=== PATIENT | female | born 1940 | race Caucasian/White ===

== ENCOUNTER 2021-05-12 05:45 | Inpatient (IN) ==
--- NOTE | 2021-05-12 06:31 | Emergency Department Note ---
Impression & Plan Chest pain, Pancytopenia, Bradycardia ED Provider Note NAME: YOUNG MANZANARES AGE: 81 SEX: F : 1940 ARRIVES VIA: Ambulance INFORMANT: Patient, ED PROVIDER(S): Ant Biswas DO CHIEF COMPLAINT: Palpitations HPI: The patient is an 81-year-old female who came to the emergency department via ambulance for an evaluation of palpitations. The patient also was experiencing chest pain last evening. The patient states that over the last few months she has been experiencing episodes of palpitations and anxiety. She was seen by her primary care physician and a Holter monitor was ordered but she could not figure out how to hook loader the monitor. The patient does not have a history of dysrhythmia such as atrial fibrillation. She is noticed no leg swelling. She did have an episode of chest discomfort and was not given aspirin prior to arrival. She denies having any abdominal pain. She has no nausea or vomiting. She describes anterior chest pressure which is since resolved. The patient has not seen her family doctor recently. She was working in the garden yesterday at her house and thinks she may have overexerted herself. The patient had no dysrhythmia for the prehospital personnel prior to arrival. ROS: See above HPI for pertinent positives & negatives. A total of 10 systems reviewed and were otherwise negative. PAST MEDICAL HISTORY: See Below PAST SURGICAL HISTORY: See Below FAMILY HISTORY: See Below SOCIAL HISTORY: See Below HOME MEDICATIONS: See Below ALLERGIES: See Below VITALS: See Below PHYSICAL EXAMINATION: GENERAL: Patient is awake alert in no acute distress patient is resting comfortably and showing no signs of anxiety EYES: The conjunctivae are clear. The pupils are round and reactive. EARS, NOSE, MOUTH AND THROAT: The nose is without any evidence of any deformity. NECK: The neck is nontender and supple. RESPIRATORY: Normal respiratory effort is noted there is no evidence of wheezing rhonchi or rales CARDIOVASCULAR: Regular rate and rhythm noted there no murmurs rubs or gallops normal S1 normal S2. GASTROINTESTINAL: The abdomen is soft. Abdomen is nontender. MUSCULOSKELETAL/EXTREMITIES: Chronic deformity is noted to the left lower extremity secondary to previous injury. SKIN: There is no obvious evidence of any rash. There are no petechiae, pallor or cyanosis noted. NEUROLOGIC: Patient is awake alert and oriented x3. MEDICAL DECISION MAKING: The patient is an 81-year-old female who presented to the emergency department for palpitations and chest pain. The patient has no specific past cardiac h istory but over the last month she has been having episodes where she felt palpitations like her heart was skipping and an anxious feeling. The patient did not have any specific EKG changes compared to previous and her cardiac biomarker was negative despite having ongoing pain since last night. She had multiple episodes in the emergency department of bradycardia where her heart rate would drop into the 20s and 30s. She did not appear to be overly symptomatic but given these episodes of bradycardia I would wonder if this is what the patient was feeling when she was having episodes of palpitations. I discussed the patient's laboratory and radiographic studies with her. She was treated with aspirin and IV fluids in the emergency department. She was also found to have a mild elevation in her creatinine as well as pancytopenia. To the best of my knowledge these are new findings. Because of the patient's complaints I did discuss his case with the on-call [facility]. Caitlin bean have agreed to evaluate the patient in the emergency department for further management and disposition. Triage Nursing notes reviewed. Prior medical records reviewed Vital Signs: reviewed and remarkable for bradycardia and elevated blood pressure. Differential diagnosis: Cardiac ischemia, aortic dissection, pulmonary embolism, pneumothorax, pneumonia, pericarditis, myocarditis, esophageal rupture, GERD, cholecystitis, pancreatitis, musculoskeletal, as well as other pathologies. ER treatment provided: See below Diagnostics interpreted by me: ECG: EKG was obtained in the emergency department. My interpretation is sinus bradycardia 57 bpm. There is no ectopy. High lateral T wave versions were noted. This was compared to a tracing from January [id number]. No significant changes were noted. Cardiac Monitoring: An order was placed for continuous cardiac monitoring. The monitor shows a rate of 57 bpm with sinus bradycardia rhythm. Laboratory studies: As stated above and show below. Imaging studies: See below Consultation(s): [id number]: I discussed this case with Dr. Hwang who is on-call for the [facility] group. She will evaluate the patient in the emergency department for further management and disposition. Past Med/Surg History Medical History (Updated 05/12/21 @ 10:57 by Abbey Hwang MD) Ambulatory dysfunction Arthritis of knee GERD (gastroesophageal reflux disease) History of anxiety History of depression Hypokalemia Hypothyroidism MCI (mild cognitive impairment) Pancreatic insufficiency Surgical History (Updated 05/12/21 @ 10:53 by Abbey Hwang MD) H/O tubal ligation History of cholecystectomy History of gastric bypass Family History (Updated 05/12/21 @ 10:54 by Abbey Hwang MD) Mother Cardiac pacemaker in situ Other Family history non-contributory Social History (Updated 05/12/21 @ 10:54 by Abbey Hwang MD) Smoking Status: Never smoker Hx Alcohol Use: No Hx Substance Use: No Preferred Language: Citizen Of [place] Communication Ability: Effective Audio Visual Secretary Required: No Beliefs That Will Affect Care: None marital status: Current Living Situation: Spouse Current Living Situation Comment: Lives with . One son lives about 15 miles away. Other Information That Helps Us Care for You: No Feels Safe at Home: Yes Safety Concerns: Feels Safe At This Time Assistive Devices: Glasses and Wheelchair Assistive Devices Comment: Uses power-wheelchair Allergies Allergies Allergy/AdvReac Type Severity Reaction Status Date / Time No Known Allergies Allergy Unverified 05/12/21 07:27 Home Meds Home Medications Medication Instructions Recorded Confirmed acetaminophen [Tylenol Extra 500 mg PO Q6H PRN 05/12/21 05/12/21 Strength] donepezil 5 mg PO HS 05/12/21 05/12/21 furosemide 40 mg PO DAILY PRN 05/12/21 05/12/21 levothyroxine 75 mcg PO QAM 05/12/21 05/12/21 [id number] [Creon] 6,000 cap PO TID 05/12/21 05/12/21 loperamide [Anti-Diarrhea] 2 mg PO Q4H PRN 05/12/21 05/12/21 loratadine-pseudoephedrine 1 tab PO DAILY PRN 05/12/21 05/12/21 [Claritin-D 24 Hour] omeprazole 20 mg PO QAM 05/12/21 05/12/21 potassium chloride 20 meq PO TID 05/12/21 05/12/21 Results & Data (ED) Vital Signs Vital Signs - 24 hr 05/12/21 05:56 05/12/21 06:01 05/12/21 06:06 Temperature 36.6 C Temperature Source Oral Pulse Rate 62 60 Pulse Rate from SpO2 Sensor 60 Respiratory Rate 18 21 Respiratory Effort / Characteristics Non-Labored Spontaneous Non-Labored Spontaneous Respiratory Depth Normal Normal Respiratory Pattern Regular Regular Blood Pressure 170/74 H 137/73 Blood Pressure Mean 106 94 Blood Pressure Position Sitting Pulse Oximetry 98 98 Oxygen Delivery Method Room Air Sepsis Recent Fever Within 48 Hours No Sepsis New/Unexplained Change in Mental Status No Sepsis Action Taken by Nursing No Action Required 05/12/21 06:38 05/12/21 07:01 05/12/21 07:34 Temperature Temperature Source Pulse Rate 40 L 40 L 61 Pulse Rate from SpO2 Sensor 41 L 61 Respiratory Rate 22 24 22 Respiratory Effort / Characteristics Respiratory Depth Respiratory Pattern Blood Pressure 150/72 H 133/61 168/77 H Blood Pressure Mean 98 85 107 Blood Pressure Position Pulse Oximetry 99 98 99 Oxygen Delivery Method Sepsis Recent Fever Within 48 Hours Sepsis New/Unexplained Change in Mental Status Sepsis Action Taken by Nursing 05/12/21 08:00 05/12/21 08:30 05/12/21 09:00 Temperature Temperature Source Pulse Rate 57 L 57 L 56 L Pulse Rate from SpO2 Sensor 57 L 56 L 55 L Respiratory Rate 21 20 20 Respiratory Effort / Characteristics Respiratory Depth Respiratory Pattern Blood Pressure 150/67 H 148/70 H Blood Pressure Mean 94 96 Blood Pressure Position Pulse Oximetry 98 97 91 Oxygen Delivery Method Sepsis Recent Fever Within 48 Hours Sepsis New/Unexplained Change in Mental Status Sepsis Action Taken by Nursing 05/12/21 09:01 05/12/21 09:02 05/12/21 09:31 Temperature Temperature Source Pulse Rate 44 L 35 L 61 Pulse Rate from SpO2 Sensor 43 L 37 L 62 Respiratory Rate 21 21 21 Respiratory Effort / Characteristics Respiratory Depth Respiratory Pattern Blood Pressure 148/59 H 113/76 Blood Pressure Mean 88 88 Blood Pressure Position Pulse Oximetry 100 100 100 Oxygen Delivery Method Sepsis Recent Fever Within 48 Hours Sepsis New/Unexplained Change in Mental Status Sepsis Action Taken by Nursing 05/12/21 10:01 05/12/21 10:02 05/12/21 10:30 Temperature Temperature Source Pulse Rate 56 L 53 L 58 L Pulse Rate from SpO2 Sensor 56 L 54 L 58 L Respiratory Rate 20 18 22 Respiratory Effort / Characteristics Respiratory Depth Respiratory Pattern Blood Pressure 154/71 H 157/72 H Blood Pressure Mean 98 100 Blood Pressure Position Pulse Oximetry 99 99 98 Oxygen Delivery Method Sepsis Recent Fever Within 48 Hours Sepsis New/Unexplained Change in Mental Status Sepsis Action Taken by Nursing 05/12/21 10:31 Temperature Temperature Source Pulse Rate 59 L Pulse Rate from SpO2 Sensor 60 Respiratory Rate 19 Respiratory Effort / Characteristics Respiratory Depth Respiratory Pattern Blood Pressure Blood Pressure Mean Blood Pressure Position Pulse Oximetry 98 Oxygen Delivery Method Sepsis Recent Fever Within 48 Hours Sepsis New/Unexplained Change in Mental Status Sepsis Action Taken by [facility] Medications Current Medication List: was personally reviewed by me Laboratory Data Attestation: I reviewed the patient's lab results. Result diagrams: 05/12/21 06:15 05/12/21 06:15 Lab Results 05/12/21 05/12/21 05/12/21 Range/Units 06:15 06:15 06:15 WBC 3.68 L (4.8-10.8) K/uL RBC 3.79 L (4.2-5.4) M/uL Hgb 11.6 L (12.0-16.0) g/dL Hct 38.2 (37-47) % MCV 100.8 H (80-100) fL MCH 30.6 (25-34) pg MCHC 30.4 L (32-36) g/dL RDW Std Deviation 60.3 H (36.4-46.3) fL RDW Coeff of Linda 16.3 H (11.5-14.5) % Plt Count 89 L (130-400) K/uL MPV 11.0 H (7.4-10.4) fL Immature Gran % (Auto) 0.0 % Neut % (Auto) 54.7 % Lymph % (Auto) 32.3 % [place] % (Auto) 9.0 % Eos % (Auto) 3.5 % Baso % (Auto) 0.5 % Neut # (Auto) 2.01 (1.4-6.5) K/uL Lymph # (Auto) 1.19 L (1.2-3.4) K/uL [place] # (Auto) 0.33 (0.11-0.59) K/uL Eos # (Auto) 0.13 (0-0.5) K/uL Baso # (Auto) 0.02 (0-0.2) K/uL Immature Gran # (Auto) 0.00 (0.00-0.02) K/uL Platelet Estimate Decreased L (Normal) Peripher Smr Path Cons PT 11.0 (9.0-12.0) Seconds INR 1.1 (0.9-1.1) APTT 25.9 (21.0-31.0) Seconds PTT Ratio 1.0 Sodium 145 (136-145) mmol/L Potassium 4.3 (3.5-5.1) mmol/L Chloride 119 H (98-107) mmol/L Carbon Dioxide 21 (21-32) mmol/L Anion Gap 5.0 (3-11) BUN 25 H (7-18) mg/dl Creatinine 1.61 H (0.6-1.2) mg/dl Est Cr Clr Drug Dosing 28.4 ml/min Est GFR ( Amer) 34.4 ml/min Est GFR (Non-Af Amer) 29.7 ml/min BUN/Creatinine Ratio 15.8 (10-20) Glucose 75 (70-99) mg/dl Calcium 7.2 L (8.5-10.1) mg/dl Magnesium 1.9 (1.8-2.4) mg/dl Total Bilirubin 0.3 (0.2-1) mg/dl AST 12 L (15-37) U/L ALT 18 (12-78) U/L Alkaline Phosphatase 229 H (45-117) U/L Troponin I < 0.015 (0-0.045) ng/ml Total Protein 5.6 L (6.4-8.2) gm/dl Albumin 2.8 L (3.4-5.0) gm/dl Globulin 2.8 (2.5-4.0) gm/dl Albumin/Globulin Ratio 1.0 (0.9-2) TSH 7.820 H (0.300-4.500) uIu/ml Free T4 0.88 (0.8-1.6) ng/dl Anaplasma Smear See Comment Lyme Disease IgG Ab (Negative) Lyme Disease IgM Ab (Negative) COVID-19 Eval Order SARS-CoV-2 (PCR) (Negative) SARS-CoV-2, RNA, NAAT 05/12/21 05/12/21 05/12/21 Range/Units 06:15 06:33 06:33 WBC (4.8-10.8) K/uL RBC (4.2-5.4) M/uL Hgb (12.0-16.0) g/dL Hct (37-47) % MCV (80-100) fL MCH (25-34) pg MCHC (32-36) g/dL RDW Std Deviation (36.4-46.3) fL RDW Coeff of Linda (11.5-14.5) % Plt Count (130-400) K/uL MPV (7.4-10.4) fL Immature Gran % (Auto) % Neut % (Auto) % Lymph % (Auto) % [place] % (Auto) % Eos % (Auto) % Baso % (Auto) % Neut # (Auto) (1.4-6.5) K/uL Lymph # (Auto) (1.2-3.4) K/uL [place] # (Auto) (0.11-0.59) K/uL Eos # (Auto) (0-0.5) K/uL Baso # (Auto) (0-0.2) K/uL Immature Gran # (Auto) (0.00-0.02) K/uL Platelet Estimate (Normal) Peripher Smr Path Cons PT (9.0-12.0) Seconds INR (0.9-1.1) APTT (21.0-31.0) Seconds PTT Ratio Sodium (136-145) mmol/L Potassium (3.5-5.1) mmol/L Chloride (98-107) mmol/L Carbon Dioxide (21-32) mmol/L Anion Gap (3-11) BUN (7-18) mg/dl Creatinine (0.6-1.2) mg/dl Est Cr Clr Drug Dosing ml/min Est GFR ( Amer) ml/min Est GFR (Non-Af Amer) ml/min BUN/Creatinine Ratio (10-20) Glucose (70-99) mg/dl Calcium (8.5-10.1) mg/dl Magnesium (1.8-2.4) mg/dl Total Bilirubin (0.2-1) mg/dl AST (15-37) U/L ALT (12-78) U/L Alkaline Phosphatase (45-117) U/L Troponin I (0-0.045) ng/ml Total Protein (6.4-8.2) gm/dl Albumin (3.4-5.0) gm/dl Globulin (2.5-4.0) gm/dl Albumin/Globulin Ratio (0.9-2) TSH (0.300-4.500) uIu/ml Free T4 (0.8-1.6) ng/dl Anaplasma Smear Lyme Disease IgG Ab Negative (Negative) Lyme Disease IgM Ab Negative (Negative) COVID-19 Eval Order Covid19 IDNow [facility] SARS-CoV-2 (PCR) (Negative) SARS-CoV-2, RNA, NAAT Cancelled 05/12/21 Range/Units 06:33 WBC (4.8-10.8) K/uL RBC (4.2-5.4) M/uL Hgb (12.0-16.0) g/dL Hct (37-47) % MCV (80-100) fL MCH (25-34) pg MCHC (32-36) g/dL RDW Std Deviation (36.4-46.3) fL RDW Coeff of Linda (11.5-14.5) % Plt Count (130-400) K/uL MPV (7.4-10.4) fL Immature Gran % (Auto) % Neut % (Auto) % Lymph % (Auto) % [place] % (Auto) % Eos % (Auto) % Baso % (Auto) % Neut # (Auto) (1.4-6.5) K/uL Lymph # (Auto) (1.2-3.4) K/uL [place] # (Auto) (0.11-0.59) K/uL Eos # (Auto) (0-0.5) K/uL Baso # (Auto) (0-0.2) K/uL Immature Gran # (Auto) (0.00-0.02) K/uL Platelet Estimate (Normal) Peripher Smr Path Cons PT (9.0-12.0) Seconds INR (0.9-1.1) APTT (21.0-31.0) Seconds PTT Ratio Sodium (136-145) mmol/L Potassium (3.5-5.1) mmol/L Chloride (98-107) mmol/L Carbon Dioxide (21-32) mmol/L Anion Gap (3-11) BUN (7-18) mg/dl Creatinine (0.6-1.2) mg/dl Est Cr Clr Drug Dosing ml/min Est GFR ( Amer) ml/min Est GFR (Non-Af Amer) ml/min BUN/Creatinine Ratio (10-20) Glucose (70-99) mg/dl Calcium (8.5-10.1) mg/dl Magnesium (1.8-2.4) mg/dl Total Bilirubin (0.2-1) mg/dl AST (15-37) U/L ALT (12-78) U/L Alkaline Phosphatase (45-117) U/L Troponin I (0-0.045) ng/ml Total Protein (6.4-8.2) gm/dl Albumin (3.4-5.0) gm/dl Globulin (2.5-4.0) gm/dl Albumin/Globulin Ratio (0.9-2) TSH (0.300-4.500) uIu/ml Free T4 (0.8-1.6) ng/dl Anaplasma Smear Lyme Disease IgG Ab (Negative) Lyme Disease IgM Ab (Negative) COVID-19 Eval Order SARS-CoV-2 (PCR) NEGATIVE (Negative) SARS-CoV-2, RNA, NAAT Administered Medications Lipase/Protease/Amylase (Pancreaze (Lipase 10,500u) Cap) 1 cap PO TIDM FLO Stop: 06/11/21 12:59 Last Admin: 05/12/21 13:11 Dose: 1 cap Documented by: [id number] Sodium Chloride (Nss 1000ml) 1,000 mls @ 100 mls/hr IV .Q10H FLO Stop: 06/11/21 10:45 Last Admin: 05/12/21 13:07 Dose: 100 mls/hr Documented by: [id number] Doxycycline Hyclate 100 mg/ (Dextrose) 110 mls @ 50 mls/hr IV Q12H FLO Stop: 05/26/21 12:20 Last Admin: 05/12/21 13:10 Dose: 50 mls/hr Documented by: [id number] Levothyroxine Sodium (Levothyroxine Sodium 88 Mcg Tablet) 88 mcg PO DAILYBB FLO Stop: 06/11/21 12:59 Last Admin: 05/12/21 13:10 Dose: 88 mcg Documented by: [id number] Potassium Chloride (Potassium Chloride Crtab 20 Meq Tabcr) 20 meq PO TID FLO Stop: 06/11/21 13:59 Last Admin: 05/12/21 13:11 Dose: 20 meq Documented by: [id number] Discontinued Medications Sodium Chloride (Nss 1000ml) 500 mls @ 999 mls/hr IV .Q31M ONE Stop: 05/12/21 07:50 Last Infusion: 05/12/21 07:53 Dose: 0 mls/hr Documented by: [id number] Admin: 05/12/21 07:33 Dose: 999 mls/hr Documented by: [id number] Imaging Data Radiologist's Impression: Chest X-Ray 05/12/21 06:18 SINGLE VIEW CHEST CLINICAL HISTORY: Dysrhythmia. FINDINGS: An AP, portable, upright chest radiograph is compared to study dated 01/22/2008. The heart is enlarged noting atherosclerotic calcification of the thoracic aorta. The pulmonary vasculature is noncongested. Chronic interstitial thickening is similar to previous. There is bibasilar scarring/atelectasis. No airspace consolidation or large pleural effusion is identified. No pneumothorax is seen. The skeletal structures are osteopenic. The bony thorax is grossly intact. IMPRESSION: Cardiomegaly with no acute cardiopulmonary abnormality. ACT 112: Negative or not required by law. Electronically signed by: Carroll Chapin M.D. 05/12/2021 7:47 AM Discharge Plan Visit Data Chief Complaint: Cardiac Assessment Stated Complaint: Dyspnea with exertion ED Provider: Ant Biswas Discharge Problem: Chest pain, Pancytopenia, Bradycardia Patient Disposition: Admitted As Inpatient Condition: Good Discharge Instructions Interventions: ED Discharge Assessment Last Done: 05/12/21 11:41 Discharge Problem: Chest pain Qualifiers: Chest pain type: unspecified Qualified Code(s): R07.9 - Chest pain, unspecified
[2021-05-12 06:45] LABS: INR 1.1 (0.9-1.1); Partial Thromboplastin Time 25.9 Seconds (21.0-31.0)
[2021-05-12 06:55] LABS: Alanine Aminotransferase 18 U/L (12-78); Albumin Level 2.8 gm/dl (3.4-5.0); Aspartate Aminotransferase 12 U/L (15-37); BUN Creatinine Ratio 15.8 (10-20); Blood Urea Nitrogen 25 mg/dl (7-18); Calcium 7.2 mg/dl (8.5-10.1); Carbon Dioxide 21 mmol/L (21-32); Chloride 119 mmol/L (98-107); Creatinine Clr Calc Pharmacy 28.4 ml/min; Est GFR (African American) 34.4 ml/min; Est GFR (Non-African American) 29.7 ml/min; Glucose 75 mg/dl (70-99); Magnesium 1.9 mg/dl (1.8-2.4); Potassium 4.3 mmol/L (3.5-5.1); Sodium 145 mmol/L (136-145)
[2021-05-12 07:05] LABS: Alkaline Phosphatase 229 U/L (45-117); Bilirubin,Total 0.3 mg/dl (0.2-1); Globulin 2.8 gm/dl (2.5-4.0); Total Protein 5.6 gm/dl (6.4-8.2); Troponin I < 0.015 ng/ml (0-0.045)
[2021-05-12 07:13] LABS: Hematocrit (blood only) 38.2 % (37-47); Hemoglobin 11.6 g/dL (12.0-16.0); Mean Corpuscular Hemoglobin 30.6 pg (25-34); Mean Corpuscular Hgb Conc 30.4 g/dL (32-36); Mean Corpuscular Volume 100.8 fL (80-100); Platelet Count 89 K/uL (130-400); RDW Coefficient of Variation 16.3 % (11.5-14.5); RDW Standard Deviation 60.3 fL (36.4-46.3); Red Blood Count 3.79 M/uL (4.2-5.4); White Blood Count 3.68 K/uL (4.8-10.8)
[2021-05-12 07:14] LABS: Basophils # (auto) 0.02 K/uL (0-0.2); Basophils % (auto) 0.5 %; Eosinophils # (auto) 0.13 K/uL (0-0.5); Eosinophils % (auto) 3.5 %; Lymphocytes # (auto) 1.19 K/uL (1.2-3.4); Lymphocytes % (auto) 32.3 %; Monocytes # (auto) 0.33 K/uL (0.11-0.59); Neutrophils # (auto) 2.01 K/uL (1.4-6.5); Neutrophils % (auto) 54.7 %; Platelet Estimate Decreased (Normal)
[2021-05-12 07:18] LABS: T4 Free Thyroxine 0.88 ng/dl (0.8-1.6)
[2021-05-12] MEDS ORDERED: SODIUM CHLORIDE 0.9% 1000ML 500 ML IV ONE (07:20)
--- NOTE | 2021-05-12 07:49 | XRay Report ---
SINGLE VIEW CHEST CLINICAL HISTORY: Dysrhythmia. FINDINGS: An AP, portable, upright chest radiograph is compared to study dated 01/22/2008. The heart i s enlarged noting atherosclerotic calcification of the thoracic aorta. The pulmonary vasculature is n oncongested. Chronic interstitial thickening is similar to previous. There is bibasilar scarring/atel ectasis. No airspace consolidation or large pleural effusion is identified. No pneumothorax is seen. The skeletal structures are osteopenic. The bony thorax is grossly intact. IMPRESSION: Cardiomegaly with no acute cardiopulmonary abnormality. ACT 112: Negative or not required by law. Electronically signed by: Carroll Chapin M.D. 05/12/2021 7:47 AM
--- NOTE | 2021-05-12 08:14 | History & Physical Report ---
Date of Service May 12, 2021 Assessment & Plan (1) Chest pain: Her pain is somewhat typical in nature, however it has been intermittent through the night and her initial troponin here is negative making acute coronary syndrome or unstable angina not likely She has no other known significant risk factors for heart disease other than age Perhaps she is having intermittent bradycardia or heart block causing her symptoms There is no evidence of heart failure. She has been having some presyncope No murmur on examination Electrolytes are within normal limits ECG without ischemic changes -Bring in on observation to telemetry unit -Check echocardiogram for wall motion abnormalities and valvular abnormalities -Consult cardiology given bradycardia and chest pressure -Serial troponins -We will hold off on aspirin given thrombocytopenia -Check lipid panel in the morning -Nitroglycerin and IV morphine as needed for pain (2) Bradycardia: Noted to have heart rate dipping into the 20s and 30s at times but was asymptomatic in the ER with some possible junctional escape beats Perhaps this is the cause of her recent presyncope episodes and shortness of breath in the last day or so Her PCP noted some sort of abnormality on EKG as an outpatient but patient is unaware of what this may be, however there was a Holter monitor ordered as an outpatient -Monitor on telemetry -Consult cardiology She is not on any AV shira blocking agents TSH is elevated but free T4 is normal, however given bradycardia will increase levothyroxine as below (3) Diarrhea: Has been having on average 4 loose bowel movements per day for last 2 weeks which is more than her usual given her chronic diarrhea No fevers or chills No abdominal pains except some mild tenderness palpation on the right abdomen -Check stool studies, C. difficile, ova and parasites -Hydrate with IV fluids given mild renal insufficiency Continue home Creon and potassium replacement Hold home Imodium until rule out infectious causes Check CT abdomen/pelvis (4) Elevated serum creatinine: Creatinine 1.61 with elevated BUN This could be from acute kidney injury due to dehydration from recent diarrhea Unclear what baseline is recently Hydrate with normal saline 100 mL/h Follow BMP in the morning Renally dose medications (5) Pancytopenia: With pancytopenia here, MCV elevated, platelets at 86 Could be secondary to viral illness or myelosuppression Anaplasma smear negative, but does not rule out anaplasmosis-checking Anaplasma DNA, Ehrlichia titer TSH is mildly elevated but not likely the cause. LFTs are normal except for elevated alkaline phosphatase-could have some hepatic steatosis or cirrhosis Could be due to B12 deficiency given gastric bypass history No history of melena or hematochezia, no hematuria Check peripheral smear -Check B12, folate, iron studies, replete as needed -Checking CT abdomen/pelvis which also assess for splenomegaly or liver issues -Follow CBC in the morning (6) GERD (gastroesophageal reflux disease): Continue home PPI Has history of gastric bypass surgery and is at risk for anastomotic ulcers (7) Pancreatic insufficiency: Patient unaware of this diagnosis but is on Creon Continue Creon with meals (8) History of depression: Listed in chart but is not on medications for this (9) History of anxiety: Listed in chart but not on medications (10) Hypothyroidism: TSH elevated, free T4 normal Increase levothyroxine 88 mcg/day given bradycardia (11) Hypokalemia: Potassium levels are normal here but is on potassium chloride 20 mEq p.o. 3 times daily at home Continue home potassium supplement here -Follow BMP and magnesium (12) Arthritis of knee: Severe arthritis of bilateral knees, is with ambulatory dysfunction and in a wheelchair for many years (13) MCI (mild cognitive impairment): Very mild, stable Continue home donepezil (14) Ambulatory dysfunction: As above, wheelchair-bound (15) DVT prophylaxis: Lovenox SQ Dispo- observation to PCU FULL CODE History of Present Illness Chief Complaint: Palpitations, chest pain, lightheadedness Primary Care Provider: Jose Dorsey MD This patient is an 81-year-old female with a history of pancreatic insufficiency, gastric bypass surgery, GERD, hypokalemia, allergic rhinitis, osteoarthritis/wheelchair-bound, hypothyroidism, anxiety/depression, and MCI, who presents to the ER via ambulance with palpitations and chest pain along with lightheadedness. She reports about 2 weeks ago she was seen by her primary care physician and was noted to have some sort of abnormality on EKG. She had a Holter monitor ordered for her but she has not been able to place it yet due to confusion over the instructions. She is also been feeling short of breath over the last 2 weeks intermittently. She was working in the garden yesterday and started having chest pressure that was left-sided, 5-6/10 in severity, that would come on with exertion and go away with rest. It was not associated with nausea/vomiting, no diaphoresis. She was also having intermittent lightheadedness especially with bending over. This lasted intermittently through the night and she came here this morning. Since being in the ER, she has not had any recurrence but has been laying at rest in the bed. In the ER, she had a couple of episodes where her heart rate dipped down into the 20s and 30s however she was asymptomatic with these. Her chest pain had resolved when she got to the ER. She denies any nausea or vomiting, no passing out, no abdominal pain. Denies any fever/chills/sweats, no headaches or acute joint pains or rashes. Denies any known tick bites. No urinary symptoms. She has been having a significant increase in diarrhea over the last 2 weeks-going 3-4 or more times per day that is nonbloody, no melena. She has chronic diarrhea but not usually this bad. She typically is in a wheelchair but has been outside trying to clean her patio from the wheelchair in the last day. Other than the occasional bradycardia, she was afebrile, mildly hypertensive, and pulse ox was 98-99% on room air. EKG in the ER shows sinus bradycardia, rate 59, no ischemic changes, no heart blocks. Review of telemetry in the ER does show occasional bradycardia down to the 20s-30s with possible junctional escape beats. On laboratory evaluation, she was found to be pancytopenic with MCV elevated at 100 and platelets low at 86K, elevated alkaline phosphatase, troponin negative x1, TSH elevated at 7.82, and creatinine elevated at 1.61, BUN elevated at 25. Peripheral smear for Anaplasma was done which was negative. Covid-19 was negative. Chest x-ray showed cardiomegaly, chronic interstitial thickening similar to previous with bibasilar scarring/atelectasis, otherwise normal. She reports she had a liver ultrasound done about a month ago and was told there was some sort of spot on her liver. In the ER, she received 500 mL of normal saline. Allergies Allergy/AdvReac Type Severity Reaction Status Date / Time No Known Allergies Allergy Unverified 05/12/21 07:27 Home Medications Medication Instructions Recorded Confirmed Type acetaminophen [Tylenol Extra 500 mg PO Q6H PRN 05/12/21 05/12/21 History Strength] donepezil 5 mg PO HS 05/12/21 05/12/21 History furosemide 40 mg PO DAILY PRN 05/12/21 05/12/21 History levothyroxine 75 mcg PO QAM 05/12/21 05/12/21 History gpbnns-fpustcij-xsiudis [Creon] 6,000 cap PO TID 05/12/21 05/12/21 History loperamide [Anti-Diarrhea] 2 mg PO Q4H PRN 05/12/21 05/12/21 History loratadine-pseudoephedrine 1 tab PO DAILY PRN 05/12/21 05/12/21 History [Claritin-D 24 Hour] omeprazole 20 mg PO QAM 05/12/21 05/12/21 History potassium chloride 20 meq PO TID 05/12/21 05/12/21 History Past Med/Surg History Medical History (Updated 05/12/21 @ 10:57 by Abbey Hwang MD) Ambulatory dysfunction Arthritis of knee GERD (gastroesophageal reflux disease) History of anxiety History of depression Hypokalemia Hypothyroidism MCI (mild cognitive impairment) Pancreatic insufficiency Surgical History (Updated 05/12/21 @ 10:53 by Abbey Hwang MD) H/O tubal ligation History of cholecystectomy History of gastric bypass Family History (Updated 05/12/21 @ 10:54 by Abbey Hwang MD) Mother Cardiac pacemaker in situ Other Family history non-contributory Social History (Updated 05/12/21 @ 10:54 by Abbey Hwang MD) Smoking Status: Never smoker Hx Alcohol Use: No Hx Substance Use: No marital status: Current Living Situation: Spouse Feels Safe at Home: Yes Review of Systems Review of Systems: All systems reviewed & are unremarkable except as noted in HPI & below Has chronic neck pain, chronic knee pain Physical Exam Constitutional: WD/WN, vitals as above Eyes: PERRL, conjunctivae normal, anicteric sclerae ENMT: external ear and nose normal, oropharynx normal Neck: trachea midline, no thyromegaly Respiratory: normal respiratory effort, lungs clear to auscultation Cardiovascular: Rate/Rhythm: regular rhythm and + bradycardic Heart Sounds: no murmur Vessels: no JVD Extremities: no calf tenderness and no edema Chest (Breasts): Chest: normal inspection of chest Gastrointestinal (Abdomen): normal bowel sounds, soft, nontender, no hepatosplenomegaly Inspection/Auscultation: + abdomen abnormal to inspection (Incisional and scars from wound) Musculoskeletal: Extremities: strength 5/5 throughout; + extremities abnormal to inspection (Plantar flexed foot contractures), no cyanosis and no clubbing Skin: no rashes, warm and dry Neurologic: moves all extremities and awake; no focal motor deficits Psychiatric: A+Ox3, euthymic affect Lymphatic: no lymphedema Results & Data Results & Data ([facility]) Vital Signs (Past 12 Hours) Vital Signs Temp Pulse Resp BP Pulse Ox 05/12/21 07:34 61 22 168/77 H 99 05/12/21 07:01 40 L 24 133/61 98 05/12/21 06:38 40 L 22 150/72 H 99 05/12/21 06:01 60 21 137/73 98 05/12/21 05:56 36.6 C 62 18 170/74 H 98 Laboratory Results 05/12/21 05/12/21 05/12/21 Range/Units 06:33 06:33 06:33 WBC (4.8-10.8) K/uL RBC (4.2-5.4) M/uL Hgb (12.0-16.0) g/dL Hct (37-47) % MCV (80-100) fL MCH (25-34) pg MCHC (32-36) g/dL RDW Std Deviation (36.4-46.3) fL RDW Coeff of Linda (11.5-14.5) % Plt Count (130-400) K/uL MPV (7.4-10.4) fL Immature Gran % (Auto) % Neut % (Auto) % Lymph % (Auto) % [place] % (Auto) % Eos % (Auto) % Baso % (Auto) % Neut # (Auto) (1.4-6.5) K/uL Lymph # (Auto) (1.2-3.4) K/uL [place] # (Auto) (0.11-0.59) K/uL Eos # (Auto) (0-0.5) K/uL Baso # (Auto) (0-0.2) K/uL Immature Gran # (Auto) (0.00-0.02) K/uL Platelet Estimate (Normal) PT (9.0-12.0) Seconds INR (0.9-1.1) APTT (21.0-31.0) Seconds PTT Ratio Sodium (136-145) mmol/L Potassium (3.5-5.1) mmol/L Chloride (98-107) mmol/L Carbon Dioxide (21-32) mmol/L Anion Gap (3-11) BUN (7-18) mg/dl Creatinine (0.6-1.2) mg/dl Est Cr Clr Drug Dosing ml/min Est GFR ( Amer) ml/min Est GFR (Non-Af Amer) ml/min BUN/Creatinine Ratio (10-20) Glucose (70-99) mg/dl Calcium (8.5-10.1) mg/dl Magnesium (1.8-2.4) mg/dl Total Bilirubin (0.2-1) mg/dl AST (15-37) U/L ALT (12-78) U/L Alkaline Phosphatase (45-117) U/L Troponin I (0-0.045) ng/ml Total Protein (6.4-8.2) gm/dl Albumin (3.4-5.0) gm/dl Globulin (2.5-4.0) gm/dl Albumin/Globulin Ratio (0.9-2) TSH (0.300-4.500) uIu/ml Free T4 (0.8-1.6) ng/dl Anaplasma Smear A. phagocytophilum DNA COVID-19 Eval Order Covid19 [facility] SARS-CoV-2 (PCR) NEGATIVE (Negative) SARS-CoV-2, RNA, NAAT Cancelled 05/12/21 05/12/21 05/12/21 Range/Units 06:15 06:15 06:15 WBC (4.8-10.8) K/uL RBC (4.2-5.4) M/uL Hgb (12.0-16.0) g/dL Hct (37-47) % MCV (80-100) fL MCH (25-34) pg MCHC (32-36) g/dL RDW Std Deviation (36.4-46.3) fL RDW Coeff of Linda (11.5-14.5) % Plt Count (130-400) K/uL MPV (7.4-10.4) fL Immature Gran % (Auto) % Neut % (Auto) % Lymph % (Auto) % [place] % (Auto) % Eos % (Auto) % Baso % (Auto) % Neut # (Auto) (1.4-6.5) K/uL Lymph # (Auto) (1.2-3.4) K/uL [place] # (Auto) (0.11-0.59) K/uL Eos # (Auto) (0-0.5) K/uL Baso # (Auto) (0-0.2) K/uL Immature Gran # (Auto) (0.00-0.02) K/uL Platelet Estimate (Normal) PT 11.0 (9.0-12.0) Seconds INR 1.1 (0.9-1.1) APTT 25.9 (21.0-31.0) Seconds PTT Ratio 1.0 Sodium 145 (136-145) mmol/L Potassium 4.3 (3.5-5.1) mmol/L Chloride 119 H (98-107) mmol/L Carbon Dioxide 21 (21-32) mmol/L Anion Gap 5.0 (3-11) BUN 25 H (7-18) mg/dl Creatinine 1.61 H (0.6-1.2) mg/dl Est Cr Clr Drug Dosing 28.4 ml/min Est GFR ( Amer) 34.4 ml/min Est GFR (Non-Af Amer) 29.7 ml/min BUN/Creatinine Ratio 15.8 (10-20) Glucose 75 (70-99) mg/dl Calcium 7.2 L (8.5-10.1) mg/dl Magnesium 1.9 (1.8-2.4) mg/dl Total Bilirubin 0.3 (0.2-1) mg/dl AST 12 L (15-37) U/L ALT 18 (12-78) U/L Alkaline Phosphatase 229 H (45-117) U/L Troponin I < 0.015 (0-0.045) ng/ml Total Protein 5.6 L (6.4-8.2) gm/dl Albumin 2.8 L (3.4-5.0) gm/dl Globulin 2.8 (2.5-4.0) gm/dl Albumin/Globulin Ratio 1.0 (0.9-2) TSH 7.820 H (0.300-4.500) uIu/ml Free T4 0.88 (0.8-1.6) ng/dl Anaplasma Smear A. phagocytophilum DNA Pending COVID-19 Eval Order SARS-CoV-2 (PCR) (Negative) SARS-CoV-2, RNA, NAAT 05/12/21 Range/Units 06:15 WBC 3.68 L (4.8-10.8) K/uL RBC 3.79 L (4.2-5.4) M/uL Hgb 11.6 L (12.0-16.0) g/dL Hct 38.2 (37-47) % MCV 100.8 H (80-100) fL MCH 30.6 (25-34) pg MCHC 30.4 L (32-36) g/dL RDW Std Deviation 60.3 H (36.4-46.3) fL RDW Coeff of Linda 16.3 H (11.5-14.5) % Plt Count 89 L (130-400) K/uL MPV 11.0 H (7.4-10.4) fL Immature Gran % (Auto) 0.0 % Neut % (Auto) 54.7 % Lymph % (Auto) 32.3 % [place] % (Auto) 9.0 % Eos % (Auto) 3.5 % Baso % (Auto) 0.5 % Neut # (Auto) 2.01 (1.4-6.5) K/uL Lymph # (Auto) 1.19 L (1.2-3.4) K/uL [place] # (Auto) 0.33 (0.11-0.59) K/uL Eos # (Auto) 0.13 (0-0.5) K/uL Baso # (Auto) 0.02 (0-0.2) K/uL Immature Gran # (Auto) 0.00 (0.00-0.02) K/uL Platelet Estimate Decreased L (Normal) PT (9.0-12.0) Seconds INR (0.9-1.1) APTT (21.0-31.0) Seconds PTT Ratio Sodium (136-145) mmol/L Potassium (3.5-5.1) mmol/L Chloride (98-107) mmol/L Carbon Dioxide (21-32) mmol/L Anion Gap (3-11) BUN (7-18) mg/dl Creatinine (0.6-1.2) mg/dl Est Cr Clr Drug Dosing ml/min Est GFR ( Amer) ml/min Est GFR (Non-Af Amer) ml/min BUN/Creatinine Ratio (10-20) Glucose (70-99) mg/dl Calcium (8.5-10.1) mg/dl Magnesium (1.8-2.4) mg/dl Total Bilirubin (0.2-1) mg/dl AST (15-37) U/L ALT (12-78) U/L Alkaline Phosphatase (45-117) U/L Troponin I (0-0.045) ng/ml Total Protein (6.4-8.2) gm/dl Albumin (3.4-5.0) gm/dl Globulin (2.5-4.0) gm/dl Albumin/Globulin Ratio (0.9-2) TSH (0.300-4.500) uIu/ml Free T4 (0.8-1.6) ng/dl Anaplasma Smear See Comment A. phagocytophilum DNA COVID-19 Eval Order SARS-CoV-2 (PCR) (Negative) SARS-CoV-2, RNA, NAAT Diagnostic Findings Chest X-Ray 05/12/21 06:18 SINGLE VIEW CHEST CLINICAL HISTORY: Dysrhythmia. FINDINGS: An AP, portable, upright chest radiograph is compared to study dated 01/22/2008. The heart is enlarged noting atherosclerotic calcification of the thoracic aorta. The pulmonary vasculature is noncongested. Chronic interstitial thickening is similar to previous. There is bibasilar scarring/atelectasis. No airspace consolidation or large pleural effusion is identified. No pneumothorax is seen. The skeletal structures are osteopenic. The bony thorax is grossly intact. IMPRESSION: Cardiomegaly with no acute cardiopulmonary abnormality. ACT 112: Negative or not required by law. Electronically signed by: Carroll Chapin M.D. 05/12/2021 7:47 AM ECG Additional Comments: Sinus bradycardia, no ischemic changes, no heart blocks Code Status & VTE Plan Code Status Full code VTE Prophylaxis Plan VTE Prophylaxis will be ordered: Yes PG Care Time/CCT Total # of Minutes Spent Total Time Spent with Patient: Total time spent is greater than 50% in coordination of care (as documented) at patient's floor/unit and/or counseling patient: Coding Level of Care Code 27896 OBS Care - Level 3 Diagnoses Chest pain R07.9 Chest pain type: unspecified Bradycardia R00.1 Diarrhea R19.7 Elevated serum creatinine R79.89 Pancytopenia D61.818 GERD (gastroesophageal reflux disease) K21.9 Pancreatic insufficiency K86.89 History of depression Z86.59 History of anxiety Z86.59 Hypothyroidism E03.9 Hypokalemia E87.6 Arthritis of knee M17.10 MCI (mild cognitive impairment) G31.84 Ambulatory dysfunction R26.2 DVT prophylaxis Z29.9 (1) Chest pain Chest pain type: unspecified Qualified Code(s): R07.9 - Chest pain, unspecified
[2021-05-12 09:44] LABS: Lyme Ab IgG w/WB Rflx Negative (Negative); Lyme Ab IgM w/WB Rflx Negative (Negative)
[2021-05-12] MEDS ORDERED: MoRPHine SULFATE 2 MG/ML CARP IV PRN (12:21)
[2021-05-12] MEDS ORDERED: NITROGLYCERIN SL 0.4 MG/TAB TAB SL PRN (12:21)
[2021-05-12] MEDS ORDERED: ONDANSETRON INJ 2 MG/ML 2 ML VIAL IV PRN (12:21)
[2021-05-12] MEDS ORDERED: ACETAMINOPHEN 500 MG TAB PO PRN (12:24)
[2021-05-12] MEDS ORDERED: ATROPINE SULFATE 0.1 MG/ML 10ML SYR IV PRN (12:32)
[2021-05-12] MEDS: SODIUM CHLORIDE 0.9% 1000ML 1,000 ML IV SCH (13:07)
[2021-05-12] MEDS: LEVOTHYROXINE SODIUM 88 MCG TABLET PO SCH (13:10)
[2021-05-12] MEDS: DOXYCYCLINE HYCLATE 100 MG in DEXTROSE 5% 100 ML IV SCH (13:10)
[2021-05-12] MEDS: POTASSIUM CHLORIDE CRTAB 20 MEQ TABCR PO SCH ×2 (13:11→20:42)
[2021-05-12] MEDS: PANCREAZE (LIPASE 10,500U) CAP PO SCH ×2 (13:11→17:09)
[2021-05-12 13:44] LABS: Iron 48 mcg/dl (35-150); Total Iron Binding Capacity 236 mcg/dl (250-450); Transferrin 163 mg/dl (200-360); Transferrin Percent Saturation 21 % (15-50)
--- NOTE | 2021-05-12 14:43 | XCELERA ---
[id number]
--- NOTE | 2021-05-12 14:50 | Cardiology Consultation ---
Date of Consultation May 12, 2021 Assessment & Plan (1) Chest pain: On the character of her symptoms would be concerning for ischemia, there have been no objective findings consistent with an acute coronary syndrome. Her EKG did not demonstrate significant ST or T-wave changes. Her echocardiogram demonstrated normal wall function LV motion. Her cardiac biomarkers are normal despite a prolonged episode of discomfort. As such, I do not believe her symptoms were related to an acute coronary syndrome or coronary disease. Her symptoms appear to have resolved without any specific intervention. (2) Bradycardia: She was demonstrated to have significant sinus node dysfunction. She transitions between sinus rhythm and a junctional rhythm. She has periods of asystole associated with this transition on occasion is not appear to be any proximate cause for her sinus node dysfunction. She does have an elevated TSH but the total T4 is normal. She does not have Lyme disease. Medications which would affect the AV or sinus node. Given her symptoms and the lack of a definable reversible cause I think she is a good candidate for permanent pacemaker. We discussed the risks and benefits of the procedure and will plan on proceeding tomorrow. (3) Mitral regurgitation: Mild to moderate on echocardiography. This can be monitored over time. History of Present Illness Reason for Consultation: Bradycardia, dizziness, chest pain Requesting Physician: Jaiden Attending Physician: Abbey Hwang MD History of Present Illness The patient is an 81-year-old woman without a known history of cardiac disease who experienced symptoms of left-sided chest discomfort over the past 24 hours. Patient states that this symptom felt like a heaviness in began yesterday afternoon. This symptom became more severe over the course of the evening and early this morning the patient was brought to the hospital for evaluation. She cannot recall what relieved her symptoms, but she has not had any additional discomfort since coming to the hospital. She cannot recall similar symptoms in the past. There may been some radiation to the left arm but no other associated symptoms. In addition to her chest discomfort, the patient has noted some palpitations, worsening exercise tolerance and dyspnea over the past 1-2 weeks. Recently she has also had symptoms of dizziness commonly associated with transferring from her electric wheelchair to bed. Also with bending over and sitting upright. She has not had actual syncope. Allergies Allergy/AdvReac Type Severity Reaction Status Date / Time No Known Allergies Allergy Unverified 05/12/21 07:27 Home Medications Medication Instructions Recorded Confirmed Type acetaminophen [Tylenol Extra 500 mg PO Q6H PRN 05/12/21 05/12/21 History Strength] donepezil 5 mg PO HS 05/12/21 05/12/21 History furosemide 40 mg PO DAILY PRN 05/12/21 05/12/21 History levothyroxine 75 mcg PO QAM 05/12/21 05/12/21 History jiegya-actcfuon-dphtvof [Creon] 6,000 cap PO TID 05/12/21 05/12/21 History loperamide [Anti-Diarrhea] 2 mg PO Q4H PRN 05/12/21 05/12/21 History loratadine-pseudoephedrine 1 tab PO DAILY PRN 05/12/21 05/12/21 History [Claritin-D 24 Hour] omeprazole 20 mg PO QAM 05/12/21 05/12/21 History potassium chloride 20 meq PO TID 05/12/21 05/12/21 History Patient History Medical History Ambulatory dysfunction Arthritis of knee GERD (gastroesophageal reflux disease) History of anxiety History of depression Hypokalemia Hypothyroidism MCI (mild cognitive impairment) Pancreatic insufficiency Surgical History H/O tubal ligation History of cholecystectomy History of gastric bypass Family History Mother Cardiac pacemaker in situ Other Family history non-contributory Social History Smoking Status: Never smoker Hx Alcohol Use: No Hx Substance Use: No Preferred Language: Frisian Communication Ability: Effective Esthetics Instructor Required: No Beliefs That Will Affect Care: None marital status: Current Living Situation: Spouse Current Living Situation Comment: Lives with . One son lives about 15 miles away. Other Information That Helps Us Care for You: No Feels Safe at Home: Yes Safety Concerns: Feels Safe At This Time Assistive Devices: Glasses and Wheelchair Assistive Devices Comment: Uses power-wheelchair Review of Systems Review of Systems: All systems reviewed & are unremarkable except as noted in HPI & below Some loose stools associated with eating recently. This appears to have improved today. Physical Exam Physical Exam: She is alert and oriented x3. Mood affect appear normal. She answered all questions appropriately. HEENT: Sclerae are anicteric. Pupils are equal and reactive to light and accommodation. Extraocular movements were intact. Neuro: Cranial nerves intact Lungs: Lungs are clear to auscultation bilaterally. There are no rales wheezes or rhonchi. She has normal respiratory effort without use of accessory muscles. There is normal pulmonary excursion. Cardiac: The rhythm was regular but slow. S1 and S2 were normal. There are no murmurs on examination. The PMI was not markedly displaced on palpation. Abdomen: The abdomen was soft and nontender. Extremities: Patient has bilateral radial pulses that are equal in intensity. There is no evidence cyanosis or clubbing. There was no evidence of significant peripheral edema bilaterally. Skin: There are no rashes noted on examination today. Results & Data ([facility]) Vital Signs (Past 12 Hours) Vital Signs Temp Pulse Pulse Resp BP BP Pulse Ox 05/12/21 12:21 05/12/21 12:14 36.6 C 53 L 16 135/66 96 05/12/21 11:31 56 L 23 163/75 H 98 05/12/21 11:01 54 L 21 99 05/12/21 11:00 53 L 20 164/69 H 98 05/12/21 10:31 59 L 19 98 05/12/21 10:30 58 L 22 157/72 H 98 05/12/21 10:02 53 L 18 99 05/12/21 10:01 56 L 20 154/71 H 99 05/12/21 09:31 61 21 113/76 100 05/12/21 09:02 35 L 21 100 05/12/21 09:01 44 L 21 148/59 H 100 05/12/21 09:00 56 L 20 91 05/12/21 08:30 57 L 20 148/70 H 97 05/12/21 08:00 57 L 21 150/67 H 98 05/12/21 07:34 61 22 168/77 H 99 05/12/21 07:01 40 L 24 133/61 98 05/12/21 06:38 40 L 22 150/72 H 99 05/12/21 06:01 60 21 137/73 98 05/12/21 05:56 36.6 C 62 18 170/74 H 98 Pulse Ox 05/12/21 12:21 94 05/12/21 12:14 05/12/21 11:31 05/12/21 11:01 05/12/21 11:00 05/12/21 10:31 05/12/21 10:30 05/12/21 10:02 05/12/21 10:01 05/12/21 09:31 05/12/21 09:02 05/12/21 09:01 05/12/21 09:00 05/12/21 08:30 05/12/21 08:00 05/12/21 07:34 05/12/21 07:01 05/12/21 06:38 05/12/21 06:01 05/12/21 05:56 Laboratory Results Abnormal Lab Results 05/12/21 05/12/21 05/12/21 06:15 06:15 06:15 WBC 3.68 L RBC 3.79 L Hgb 11.6 L Hct 38.2 MCV 100.8 H MCH 30.6 MCHC 30.4 L RDW Std Deviation 60.3 H RDW Coeff of Linda 16.3 H Plt Count 89 L MPV 11.0 H Immature Gran % (Auto) 0.0 Neut % (Auto) 54.7 Lymph % (Auto) 32.3 [place] % (Auto) 9.0 Eos % (Auto) 3.5 Baso % (Auto) 0.5 Neut # (Auto) 2.01 Lymph # (Auto) 1.19 L [place] # (Auto) 0.33 Eos # (Auto) 0.13 Baso # (Auto) 0.02 Immature Gran # (Auto) 0.00 Platelet Estimate Decreased L Peripher Smr Path Cons PT 11.0 INR 1.1 APTT 25.9 PTT Ratio 1.0 Sodium 145 Potassium 4.3 Chloride 119 H Carbon Dioxide 21 Anion Gap 5.0 BUN 25 H Creatinine 1.61 H Est Cr Clr Drug Dosing 28.4 Est GFR ( Amer) 34.4 Est GFR (Non-Af Amer) 29.7 BUN/Creatinine Ratio 15.8 Glucose 75 Calcium 7.2 L Magnesium 1.9 Iron TIBC Transferrin Transferrin % Sat Total Bilirubin 0.3 AST 12 L ALT 18 Alkaline Phosphatase 229 H Troponin I < 0.015 Total Protein 5.6 L Albumin 2.8 L Globulin 2.8 Albumin/Globulin Ratio 1.0 TSH 7.820 H Free T4 0.88 Anaplasma Smear See Comment Lyme Disease IgG Ab Lyme Disease IgM Ab COVID-19 Eval Order SARS-CoV-2 (PCR) SARS-CoV-2, RNA, NAAT 05/12/21 05/12/21 05/12/21 06:15 06:33 06:33 WBC RBC Hgb Hct MCV MCH MCHC RDW Std Deviation RDW Coeff of Linda Plt Count MPV Immature Gran % (Auto) Neut % (Auto) Lymph % (Auto) [place] % (Auto) Eos % (Auto) Baso % (Auto) Neut # (Auto) Lymph # (Auto) [place] # (Auto) Eos # (Auto) Baso # (Auto) Immature Gran # (Auto) Platelet Estimate Peripher Smr Path Cons PT INR APTT PTT Ratio Sodium Potassium Chloride Carbon Dioxide Anion Gap BUN Creatinine Est Cr Clr Drug Dosing Est GFR ( Amer) Est GFR (Non-Af Amer) BUN/Creatinine Ratio Glucose Calcium Magnesium Iron TIBC Transferrin Transferrin % Sat Total Bilirubin AST ALT Alkaline Phosphatase Troponin I Total Protein Albumin Globulin Albumin/Globulin Ratio TSH Free T4 Anaplasma Smear Lyme Disease IgG Ab Negative Lyme Disease IgM Ab Negative COVID-19 Eval [facility] SARS-CoV-2 (PCR) SARS-CoV-2, RNA, NAAT Cancelled 05/12/21 05/12/21 05/12/21 06:33 12:04 12:04 WBC RBC Hgb Hct MCV MCH MCHC RDW Std Deviation RDW Coeff of Linda Plt Count MPV Immature Gran % (Auto) Neut % (Auto) Lymph % (Auto) [place] % (Auto) Eos % (Auto) Baso % (Auto) Neut # (Auto) Lymph # (Auto) [place] # (Auto) Eos # (Auto) Baso # (Auto) Immature Gran # (Auto) Platelet Estimate Peripher Smr Path Cons PT INR APTT PTT Ratio Sodium Potassium Chloride Carbon Dioxide Anion Gap BUN Creatinine Est Cr Clr Drug Dosing Est GFR ( Amer) Est GFR (Non-Af Amer) BUN/Creatinine Ratio Glucose Calcium Magnesium Iron 48 TIBC 236 L Transferrin 163 L Transferrin % Sat 21 Total Bilirubin AST ALT Alkaline Phosphatase Troponin I < 0.015 Total Protein Albumin Globulin Albumin/Globulin Ratio TSH Free T4 Anaplasma Smear Lyme Disease IgG Ab Lyme Disease IgM Ab COVID-19 Eval Order SARS-CoV-2 (PCR) NEGATIVE SARS-CoV-2, RNA, NAAT Diagnostic Findings Chest x-ray obtained at the time admission did not reveal any acute cardiopulmonary process. Cardiomegaly. Echocardiogram performed today revealed preserved LV systolic function with [id number] mitral regurgitation. I reviewed the source image of her EKG which demonstrated sinus bradycardia. Narrow QRS. PG Care Time/CCT Total # of Minutes Spent Total Time Spent with Patient: Total time spent is greater than 50% in coordination of care (as documented) at patient's floor/unit and/or counseling patient: Coding Level of Care Code 20649 Initial Inpt Care Lvl 3 Diagnoses Chest pain R07.9 Chest pain type: unspecified Bradycardia R00.1 Mitral regurgitation I34.0 (1) Chest pain Chest pain type: unspecified Qualified Code(s): R07.9 - Chest pain, unspecified
[2021-05-12] MEDS: PANTOprazole 40 MG TAB PO SCH (15:34)
--- NOTE | 2021-05-12 16:01 | CT Scan Report ---
CT SCAN OF THE ABDOMEN AND PELVIS WITHOUT IV CONTRAST CLINICAL HISTORY: Diarrhea. Thrombocytopenia. COMPARISON STUDY: No priors. TECHNIQUE: CT scan of the abdomen and pelvis is performed from the lung bases to the proximal femora. Images are reviewed in the axial, sagittal, and coronal planes. IV contrast was not administered for this examination. A dose lowering technique was utilized adhering to the principles of ALARA. CT DOSE: 957.73 mGy.cm FINDINGS: Lung bases: The heart is mildly enlarged and without pericardial effusion. The coronary arteries are densely calcified. The lung bases are clear noting bibasilar scarring/atelectasis. Liver: The unenhanced liver is normal in size, contour, and attenuation. There is mild intrahepatic b iliary ductal dilatation. Gallbladder: Not identified and presumed surgically absent. Spleen: Normal in size and attenuation, measuring 11.8 cm in length. Pancreas: The unenhanced pancreas is atrophic and grossly unremarkable. Adrenal glands: There is a 1.4 cm left adrenal adenoma. The right adrenal gland is normal as visualiz ed. Kidneys: The unenhanced kidneys are atrophic and without hydronephrosis. There is a punctate nonobstr ucting calculus in the left lower pole. No right renal calculi are identified. There is no evidence o f contour deforming renal mass lesion. Abdominal vasculature: The abdominal aorta is normal in course and caliber. An infrarenal IVC filter is in place. Stomach and bowel: There is postoperative change consistent with partial gastrectomy. There is mild t o moderate colonic diverticulosis without CT evidence of acute diverticulitis. No bowel obstruction i s identified. The colon is relatively decompressed. No significant colonic wall thickening or pericol onic inflammation is identified. The appendix is not identified and reported surgically absent. Peritoneum: There is no intraperitoneal free air or abdominal ascites. Lymphadenopathy: None. Pelvic viscera: The bladder wall is thickened and there is pericystic inflammation. The uterus and ad nexa are normal as visualized noting bilateral adnexal surgical clips. Skeletal structures: The skeletal structures are osteopenic. There is advanced lumbosacral spondylosi s as well as scoliosis. There are mild superior endplate compression deformities of T11 and L1. No ly tic or blastic lesions are seen. Arthritic changes seen in the hips, left greater than right. IMPRESSION: 1. Findings suggest cystitis. Correlate with clinical findings and urinalysis. 2. Colonic diverticulosis without CT evidence of acute diverticulitis. 3. Left-sided nephrolithiasis. 4. Mild cardiomegaly. 5. Additional findings as above. ACT 112: Negative or not required by law. Electronically signed by: Carroll Chapin M.D. 05/12/2021 3:59 PM
--- NOTE | 2021-05-12 17:58 | Electrocardiogram Report ---
Test Reason : Blood Pressure : / mmHG Vent. Rate : 057 BPM Atrial Rate : 057 BPM P-R Int : 182 ms QRS Dur : 076 ms QT Int : 460 ms P-R-T Axes : 050 043 075 degrees QTc Int : 447 ms Sinus bradycardia Otherwise normal ECG When compared with ECG of 22-JAN-2008 10:55, No significant change was found Confirmed by José Miguel Fermin ([id number]) on 05/12/2021 5:58:02 PM Referred By: REFERRED SELF Confirmed By:Sourav Fermin
[2021-05-12 18:59] LABS: Folate (Folic Acid) 15.4 ng/ml (>5.38)
[2021-05-12] MEDS: ENOXAPARIN INJ 40 MG/0.4 ML SYR SQ SCH (20:42)
[2021-05-12] MEDS ORDERED: DONEPEZIL HCL 5 MG TAB PO SCH (21:00)
[2021-05-12 23:51] LABS: Appearance Urine Clear (Clear); Bacteria Urine Automated 1+ (Negative); Bilirubin Urine Negative (Negative); Blood Urine Negative (Negative); Cast Urine Automated 0 /lpf (0-5); Color Urine Yellow; Epithelial Cell Urine Auto 20-30 /lpf (0-5); Glucose Urine UA Negative (Negative); Ketones Urine Negative (Negative); Leukocyte Esterase Urine 1+ (Negative); Nitrite Urine Negative (Negative); Protein Urine Negative (Negative); RBC Urine Automated 0-4 /hpf (0-4); Specific Gravity Urine 1.007 (1.000-1.030); Urobilinogen Urine Negative (Negative); pH Urine 5.5 (4.5-7.5)
[2021-05-13] MEDS: DOXYCYCLINE HYCLATE 100 MG in DEXTROSE 5% 100 ML IV SCH ×2 (00:11→12:23)
[2021-05-13] MEDS: SODIUM CHLORIDE 0.9% 1000ML 1,000 ML IV SCH ×2 (00:11→12:21)
[2021-05-13] MEDS: LEVOTHYROXINE SODIUM 88 MCG TABLET PO SCH (05:42)
[2021-05-13 07:43] LABS: Basophils # (auto) 0.01 K/uL (0-0.2); Basophils % (auto) 0.3 %; Eosinophils % (auto) 2.8 %; Hematocrit (blood only) 37.4 % (37-47); Hemoglobin 12.1 g/dL (12.0-16.0); Immature Granulocytes # (auto) 0.01 K/uL (0.00-0.02); Immature Granulocytes % (auto) 0.3 %; Lymphocytes # (auto) 1.32 K/uL (1.2-3.4); Lymphocytes % (auto) 37.3 %; Mean Corpuscular Hemoglobin 32.2 pg (25-34); Mean Corpuscular Hgb Conc 32.4 g/dL (32-36); Mean Corpuscular Volume 99.5 fL (80-100); Mean Platelet Volume 12.3 fL (7.4-10.4); Monocytes # (auto) 0.28 K/uL (0.11-0.59); Monocytes % (auto) 7.9 %; Neutrophils # (auto) 1.82 K/uL (1.4-6.5); Neutrophils % (auto) 51.4 %; Platelet Count 91 K/uL (130-400); Platelet Estimate Decreased (Normal); RDW Coefficient of Variation 16.4 % (11.5-14.5); Red Blood Count 3.76 M/uL (4.2-5.4); White Blood Count 3.54 K/uL (4.8-10.8)
[2021-05-13 07:51] LABS: Albumin Globulin Ratio 0.9 (0.9-2); Albumin Level 2.6 gm/dl (3.4-5.0); BUN Creatinine Ratio 19.4 (10-20); Bilirubin,Total 0.3 mg/dl (0.2-1); Calcium 7.2 mg/dl (8.5-10.1); Creatinine Clr Calc Pharmacy 36.6 ml/min; Est GFR (African American) 46.7 ml/min; Est GFR (Non-African American) 40.3 ml/min; Globulin 2.8 gm/dl (2.5-4.0); Magnesium 1.9 mg/dl (1.8-2.4); Potassium 5.2 mmol/L (3.5-5.1); Total Protein 5.4 gm/dl (6.4-8.2)
[2021-05-13] MEDS: PANTOprazole 40 MG TAB PO SCH (08:19)
[2021-05-13] MEDS: PANCREAZE (LIPASE 10,500U) CAP PO SCH ×3 (08:19→17:39)
[2021-05-13] MEDS: POTASSIUM CHLORIDE CRTAB 20 MEQ TABCR PO SCH (08:20)
--- NOTE | 2021-05-13 11:08 | Cardiology Progress Note ---
Date of Service May 13, 2021 Assessment & Plan (1) Chest pain: No recurrence. No elevation biomarkers. (2) Bradycardia: She continues to transition between a sinus bradycardia and junctional rhythm. No symptoms while in bed. While donepezil has been reported to cause bradycardia and syncope, she is on a relatively low dose. She has been on this dose for few months. I do not know if it is possible to correlate use of this medication with her bradycardia unless it was stopped for an extended period. Certainly no improvement in the last 24 hours. As such, I think would be reasonable to implant the pacemaker as scheduled. (3) Mitral regurgitation: Mild to moderate on echocardiography. This can be monitored over time. Admission and Anticipated Discharge Date Admission Date: May 12, 2021 Subjective This morning the patient is somewhat tired and anxious for her procedure. She has not report any additional episodes of chest pain. No dizziness at rest. No breathing difficulty. Review of Systems Review of Systems: Per HPI Physical Exam Physical Exam: She is alert and oriented x3. Mood affect appear normal. She answered all questions appropriately. HEENT: Sclerae are anicteric. Neuro: Cranial nerves intact Lungs: Normal respiratory effort Cardiac: The rhythm was regular but slow. Extremities: Patient has bilateral radial pulses that are equal in intensity. There is no evidence cyanosis or clubbing. There was no evidence of significant peripheral edema bilaterally. Skin: There are no rashes noted on examination today. Results & Data ([facility]) Vital Signs (Past 12 Hours) Vital Signs Temp Pulse Pulse Resp BP Pulse Ox 05/13/21 07:44 36.4 C L 32 L 22 144/51 H 96 05/13/21 07:24 32 L 05/13/21 02:56 36.6 C 38 L 17 129/75 96 05/12/21 23:55 34 L Laboratory Results Abnormal Lab Results 05/12/21 05/12/21 05/12/21 06:15 12:04 12:04 WBC RBC Hgb Hct MCV MCH MCHC RDW Std Deviation RDW Coeff of Linda Plt Count MPV Immature Gran % (Auto) Neut % (Auto) Lymph % (Auto) [place] % (Auto) Eos % (Auto) Baso % (Auto) Neut # (Auto) Lymph # (Auto) [place] # (Auto) Eos # (Auto) Baso # (Auto) Immature Gran # (Auto) Platelet Estimate Peripher Smr Path Cons Sodium Potassium Chloride Carbon Dioxide Anion Gap BUN Creatinine Est Cr Clr Drug Dosing Est GFR ( Amer) Est GFR (Non-Af Amer) BUN/Creatinine Ratio Glucose Calcium Magnesium Iron 48 TIBC 236 L Transferrin 163 L Transferrin % Sat 21 Total Bilirubin AST ALT Alkaline Phosphatase Troponin I Total Protein Albumin Globulin Albumin/Globulin Ratio Triglycerides Cholesterol LDL Cholesterol, Calc VLDL Cholesterol, Calc HDL Cholesterol Cholesterol/HDL Ratio Vitamin B12 Cancelled Folate Cancelled Urine Color Urine Appearance Urine pH Ur Specific [place] Urine Protein Urine Glucose (UA) Urine Ketones Urine Blood Urine Nitrite Urine Bilirubin Urine Urobilinogen Ur Leukocyte Esterase Urine WBC (Auto) Urine RBC (Auto) U Hyaline Cast (Auto) U Epithel Cells (Auto) Urine Bacteria (Auto) Stl C. diff Tox B Gene 05/12/21 05/12/21 05/12/21 12:04 15:22 17:27 WBC RBC Hgb Hct MCV MCH MCHC RDW Std Deviation RDW Coeff of Linda Plt Count MPV Immature Gran % (Auto) Neut % (Auto) Lymph % (Auto) [place] % (Auto) Eos % (Auto) Baso % (Auto) Neut # (Auto) Lymph # (Auto) [place] # (Auto) Eos # (Auto) Baso # (Auto) Immature Gran # (Auto) Platelet Estimate Peripher Smr Path Cons Sodium Potassium Chloride Carbon Dioxide Anion Gap BUN Creatinine Est Cr Clr Drug Dosing Est GFR ( Amer) Est GFR (Non-Af Amer) BUN/Creatinine Ratio Glucose Calcium Magnesium Iron TIBC Transferrin Transferrin % Sat Total Bilirubin AST ALT Alkaline Phosphatase Troponin I < 0.015 < 0.015 Total Protein Albumin Globulin Albumin/Globulin Ratio Triglycerides Cholesterol LDL Cholesterol, Calc VLDL Cholesterol, Calc HDL Cholesterol Cholesterol/HDL Ratio Vitamin B12 Folate Urine Color Urine Appearance Urine pH Ur Specific [place] Urine Protein Urine Glucose (UA) Urine Ketones Urine Blood Urine Nitrite Urine Bilirubin Urine Urobilinogen Ur Leukocyte Esterase Urine WBC (Auto) Urine RBC (Auto) U Hyaline Cast (Auto) U Epithel Cells (Auto) Urine Bacteria (Auto) Stl C. diff Tox B Gene Negative Cdiff Gene 05/12/21 05/12/21 05/13/21 17:27 Unknown 06:32 WBC 3.54 L RBC 3.76 L Hgb 12.1 Hct 37.4 MCV 99.5 MCH 32.2 MCHC 32.4 RDW Std Deviation 60.0 H RDW Coeff of Linda 16.4 H Plt Count 91 L MPV 12.3 H Immature Gran % (Auto) 0.3 Neut % (Auto) 51.4 Lymph % (Auto) 37.3 [place] % (Auto) 7.9 Eos % (Auto) 2.8 Baso % (Auto) 0.3 Neut # (Auto) 1.82 Lymph # (Auto) 1.32 [place] # (Auto) 0.28 Eos # (Auto) 0.10 Baso # (Auto) 0.01 Immature Gran # (Auto) 0.01 Platelet Estimate Decreased L Peripher Smr Path Cons Sodium Potassium Chloride Carbon Dioxide Anion Gap BUN Creatinine Est Cr Clr Drug Dosing Est GFR ( Amer) Est GFR (Non-Af Amer) BUN/Creatinine Ratio Glucose Calcium Magnesium Iron TIBC Transferrin Transferrin % Sat Total Bilirubin AST ALT Alkaline Phosphatase Troponin I Total Protein Albumin Globulin Albumin/Globulin Ratio Triglycerides Cholesterol LDL Cholesterol, Calc VLDL Cholesterol, Calc HDL Cholesterol Cholesterol/HDL Ratio Vitamin B12 383 Folate 15.40 Urine Color Yellow Urine Appearance Clear Urine pH 5.5 Ur Specific [place] 1.007 Urine Protein Negative Urine Glucose (UA) Negative Urine Ketones Negative Urine Blood Negative Urine Nitrite Negative Urine Bilirubin Negative Urine Urobilinogen Negative Ur Leukocyte Esterase 1+ H Urine WBC (Auto) 5-10 H Urine RBC (Auto) 0-4 U Hyaline Cast (Auto) 0 U Epithel Cells (Auto) 20-30 H Urine Bacteria (Auto) 1+ H Stl C. diff Tox B Gene 05/13/21 06:32 WBC RBC Hgb Hct MCV MCH MCHC RDW Std Deviation RDW Coeff of Linda Plt Count MPV Immature Gran % (Auto) Neut % (Auto) Lymph % (Auto) [place] % (Auto) Eos % (Auto) Baso % (Auto) Neut # (Auto) Lymph # (Auto) [place] # (Auto) Eos # (Auto) Baso # (Auto) Immature Gran # (Auto) Platelet Estimate Peripher Smr Path Cons Sodium 144 Potassium 5.2 H D Chloride 119 H Carbon Dioxide 19 L Anion Gap 6.0 BUN 24 H Creatinine 1.25 H D Est Cr Clr Drug Dosing 36.6 Est GFR ( Amer) 46.7 Est GFR (Non-Af Amer) 40.3 BUN/Creatinine Ratio 19.4 Glucose 82 Calcium 7.2 L Magnesium 1.9 Iron TIBC Transferrin Transferrin % Sat Total Bilirubin 0.3 AST 13 L ALT 17 Alkaline Phosphatase 204 H Troponin I Total Protein 5.4 L Albumin 2.6 L Globulin 2.8 Albumin/Globulin Ratio 0.9 Triglycerides 55 Cholesterol 88 LDL Cholesterol, Calc 26 VLDL Cholesterol, Calc 11 HDL Cholesterol 51 Cholesterol/HDL Ratio 2 Vitamin B12 Folate Urine Color Urine Appearance Urine pH Ur Specific [place] Urine Protein Urine Glucose (UA) Urine Ketones Urine Blood Urine Nitrite Urine Bilirubin Urine Urobilinogen Ur Leukocyte Esterase Urine WBC (Auto) Urine RBC (Auto) U Hyaline Cast (Auto) U Epithel Cells (Auto) Urine Bacteria (Auto) Stl C. diff Tox B Gene PG Care Time/CCT Total # of Minutes Spent Total Time Spent with Patient: Total time spent is greater than 50% in coordination of care (as documented) at patient's floor/unit and/or counseling patient: Coding Level of Care Code 05890 Subseq Hosp Care Lvl 2 Diagnoses Chest pain R07.9 Chest pain type: unspecified Bradycardia R00.1 Mitral regurgitation I34.0 (1) Chest pain Chest pain type: unspecified Qualified Code(s): R07.9 - Chest pain, unspecified
--- NOTE | 2021-05-13 11:52 | Hospitalist Progress Note ---
Date of Service May 13, 2021 Assessment & Plan (1) Bradycardia: Noted to have heart rate dipping into the 20s and 30s at times but was asymptomatic in the ER with some possible junctional escape beats Now continues with junctional rhythm, multiple sinus arrests in 4 second range BPs stable Plan for PPM today with Dr. Fermin This is the cause of her recent presyncope episodes and shortness of breath in the last day or so She is not on any AV shira blocking agents TSH is elevated but free T4 is normal, however given bradycardia will increase levothyroxine as below -maintain pacer pads util pacer placed atropine prn (2) Chest pain: Her pain is somewhat typical in nature, however it has been intermittent through the night and her serial troponins here are negative making acute coronary syndrome or unstable angina ruled out She has no other known significant risk factors for heart disease other than age Perhaps she is having intermittent bradycardia or heart block causing her symptoms There is no evidence of heart failure. She has been having some presyncope No murmur on examination Electrolytes are within normal limits ECG without ischemic changes ECHO with mild-mod MR, no WMA, preserved EF (3) Diarrhea: Has been having on average 4 loose bowel movements per day for last 2 weeks which is more than her usual given her chronic diarrhea No fevers or chills No abdominal pains except some mild tenderness palpation on the right abdomen Improved somewhat today C. diff negative Stool cx pending O&P pending -Hydrate with IV fluids given mild renal insufficiency Continue home Creon and potassium replacement Hold home Imodium until rule out infectious causes Check CT abdomen/pelvis-negative (4) Elevated serum creatinine: Creatinine 1.61 with elevated BUN on admission, now resolved with IVFs build manager down to 1.25 This could be from acute kidney injury due to dehydration from recent diarrhea continue IVFs while NPO Follow BMP in the morning Renally dose medications (5) Pancytopenia: With pancytopenia here, MCV elevated, platelets at 86 on admission and fairly stable today at 90 Could be secondary to viral illness or myelosuppression Anaplasma smear negative, but does not rule out anaplasmosis-checking Anaplasma DNA, Ehrlichia titer TSH is mildly elevated but not likely the cause. LFTs are normal except for elevated alkaline phosphatase-could have some hepatic steatosis or cirrhosis Could be due to B12 deficiency given gastric bypass history but B12 level here is normal FOlate normal, Fe studies not terrible No history of melena or hematochezia, no hematuria Check peripheral smear-no dysplasia but could be MDS CT abdomen/pelvis no splenomegaly or liver issues -Follow CBC in the morning -refer to Heme as outpt, may be MDS, may need bone marrow bx f/u on Anaplasmosis PCR (6) GERD (gastroesophageal reflux disease): Continue home PPI Has history of gastric bypass surgery and is at risk for anastomotic ulcers (7) Pancreatic insufficiency: Patient unaware of this diagnosis but is on Creon Continue Creon with meals (8) History of depression: Listed in chart but is not on medications for this (9) History of anxiety: Listed in chart but not on medications (10) Hypothyroidism: TSH elevated, free T4 normal Increase levothyroxine 88 mcg/day given bradycardia (11) Hypokalemia: Potassium levels are normal here but is on potassium chloride 20 mEq p.o. 3 times daily at home now mild hyperkalemia HOLD K+ supplement -Follow BMP and magnesium (12) Arthritis of knee: Severe arthritis of bilateral knees, is with ambulatory dysfunction and in a wheelchair for many years (13) MCI (mild cognitive impairment): Very mild, stable HOLD donepezil in case was contributing to bradycardia (14) Ambulatory dysfunction: As above, wheelchair-bound (15) DVT prophylaxis: Lovenox SQ Dispo- continued stay, needs admission, will remain overnight FULL CODE Admission and Anticipated Discharge Date Admission Date: May 12, 2021 Subjective Pt feels quite fatigued. Has occasional chest pressure. No nausea, no abd pain. Diarrhea has slowed down. Tele with sinus puja and junctional rhythm, PJCs, WAP, rates in 20s-40s, longest sinus arrest pause 4.5 sec. Review of Systems Review of Systems: All systems reviewed & are unremarkable except as noted in HPI & below Physical Exam Constitutional: WD/WN, vitals as above Eyes: + anicteric sclerae Neck: trachea midline, no thyromegaly Respiratory: normal respiratory effort, lungs clear to auscultation Cardiovascular: Rate/Rhythm: regular rhythm and + bradycardic Heart Sounds: no murmur Vessels: no JVD Extremities: no calf tenderness and no edema Chest (Breasts): Chest: normal inspection of chest Gastrointestinal (Abdomen): normal bowel sounds, soft, nontender, no hepatosplenomegaly Musculoskeletal: Extremities: strength 5/5 throughout; + extremities abnormal to inspection (Plantar flexed foot contractures), no cyanosis and no clubbing Skin: no rashes, warm and dry Neurologic: moves all extremities and awake; no focal motor deficits Psychiatric: A+Ox3, euthymic affect Lymphatic: no lymphedema Results & Data Results & Data ([facility]) Vital Signs (Past 12 Hours) Vital Signs Temp Pulse Pulse Resp BP Pulse Ox 05/13/21 11:40 36.6 C 35 L 20 122/55 L 96 05/13/21 07:44 36.4 C L 32 L 22 144/51 H 96 05/13/21 07:24 32 L 05/13/21 02:56 36.6 C 38 L 17 129/75 96 05/12/21 23:55 34 L Laboratory Results 05/13/21 05/13/21 05/12/21 Range/Units 06:32 06:32 Unknown WBC 3.54 L (4.8-10.8) K/uL RBC 3.76 L (4.2-5.4) M/uL Hgb 12.1 (12.0-16.0) g/dL Hct 37.4 (37-47) % MCV 99.5 (80-100) fL MCH 32.2 (25-34) pg MCHC 32.4 (32-36) g/dL RDW Std Deviation 60.0 H (36.4-46.3) fL RDW Coeff of Linda 16.4 H (11.5-14.5) % Plt Count 91 L (130-400) K/uL MPV 12.3 H (7.4-10.4) fL Immature Gran % (Auto) 0.3 % Neut % (Auto) 51.4 % Lymph % (Auto) 37.3 % Charlton % (Auto) 7.9 % Eos % (Auto) 2.8 % Baso % (Auto) 0.3 % Neut # (Auto) 1.82 (1.4-6.5) K/uL Lymph # (Auto) 1.32 (1.2-3.4) K/uL Charlton # (Auto) 0.28 (0.11-0.59) K/uL Eos # (Auto) 0.10 (0-0.5) K/uL Baso # (Auto) 0.01 (0-0.2) K/uL Immature Gran # (Auto) 0.01 (0.00-0.02) K/uL Platelet Estimate Decreased L (Normal) Peripher Smr Path Cons Sodium 144 (136-145) mmol/L Potassium 5.2 H D (3.5-5.1) mmol/L Chloride 119 H (98-107) mmol/L Carbon Dioxide 19 L (21-32) mmol/L Anion Gap 6.0 (3-11) BUN 24 H (7-18) mg/dl Creatinine 1.25 H D (0.6-1.2) mg/dl Est Cr Clr Drug Dosing 36.6 ml/min Est GFR ( Amer) 46.7 ml/min Est GFR (Non-Af Amer) 40.3 ml/min BUN/Creatinine Ratio 19.4 (10-20) Glucose 82 (70-99) mg/dl Calcium 7.2 L (8.5-10.1) mg/dl Magnesium 1.9 (1.8-2.4) mg/dl Iron (35-150) mcg/dl TIBC (250-450) mcg/dl Transferrin (200-360) mg/dl Transferrin % Sat (15-50) % Total Bilirubin 0.3 (0.2-1) mg/dl AST 13 L (15-37) U/L ALT 17 (12-78) U/L Alkaline Phosphatase 204 H (45-117) U/L Troponin I (0-0.045) ng/ml Total Protein 5.4 L (6.4-8.2) gm/dl Albumin 2.6 L (3.4-5.0) gm/dl Globulin 2.8 (2.5-4.0) gm/dl Albumin/Globulin Ratio 0.9 (0.9-2) Triglycerides 55 (0-150) mg/dl Cholesterol 88 (0-200) mg/dl LDL Cholesterol, Calc 26 mg/dl VLDL Cholesterol, Calc 11 mg/dl HDL Cholesterol 51 mg/dl Cholesterol/HDL Ratio 2 Vitamin B12 Folate Urine Color Yellow Urine Appearance Clear (Clear) Urine pH 5.5 (4.5-7.5) Ur Specific [place] 1.007 (1.000-1.030) Urine Protein Negative (Negative) Urine Glucose (UA) Negative (Negative) Urine Ketones Negative (Negative) Urine Blood Negative (Negative) Urine Nitrite Negative (Negative) Urine Bilirubin Negative (Negative) Urine Urobilinogen Negative (Negative) Ur Leukocyte Esterase 1+ H (Negative) Urine WBC (Auto) 5-10 H (0-5) /hpf Urine RBC (Auto) 0-4 (0-4) /hpf U Hyaline Cast (Auto) 0 (0-5) /lpf U Epithel Cells (Auto) 20-30 H (0-5) /lpf Urine Bacteria (Auto) 1+ H (Negative) Stl C. diff Tox B Gene (Neg) Stool Comments 05/12/21 05/12/21 05/12/21 Range/Units 17:27 17:27 15:22 WBC (4.8-10.8) K/uL RBC (4.2-5.4) M/uL Hgb (12.0-16.0) g/dL Hct (37-47) % MCV (80-100) fL MCH (25-34) pg MCHC (32-36) g/dL RDW Std Deviation (36.4-46.3) fL RDW Coeff of Linda (11.5-14.5) % Plt Count (130-400) K/uL MPV (7.4-10.4) fL Immature Gran % (Auto) % Neut % (Auto) % Lymph % (Auto) % Charlton % (Auto) % Eos % (Auto) % Baso % (Auto) % Neut # (Auto) (1.4-6.5) K/uL Lymph # (Auto) (1.2-3.4) K/uL Charlton # (Auto) (0.11-0.59) K/uL Eos # (Auto) (0-0.5) K/uL Baso # (Auto) (0-0.2) K/uL Immature Gran # (Auto) (0.00-0.02) K/uL Platelet Estimate (Normal) Peripher Smr Path Cons Sodium (136-145) mmol/L Potassium (3.5-5.1) mmol/L Chloride (98-107) mmol/L Carbon Dioxide (21-32) mmol/L Anion Gap (3-11) BUN (7-18) mg/dl Creatinine (0.6-1.2) mg/dl Est Cr Clr Drug Dosing ml/min Est GFR ( Amer) ml/min Est GFR (Non-Af Amer) ml/min BUN/Creatinine Ratio (10-20) Glucose (70-99) mg/dl Calcium (8.5-10.1) mg/dl Magnesium (1.8-2.4) mg/dl Iron (35-150) mcg/dl TIBC (250-450) mcg/dl Transferrin (200-360) mg/dl Transferrin % Sat (15-50) % Total Bilirubin (0.2-1) mg/dl AST (15-37) U/L ALT (12-78) U/L Alkaline Phosphatase (45-117) U/L Troponin I < 0.015 (0-0.045) ng/ml Total Protein (6.4-8.2) gm/dl Albumin (3.4-5.0) gm/dl Globulin (2.5-4.0) gm/dl Albumin/Globulin Ratio (0.9-2) Triglycerides (0-150) mg/dl Cholesterol (0-200) mg/dl LDL Cholesterol, Calc mg/dl VLDL Cholesterol, Calc mg/dl HDL Cholesterol mg/dl Cholesterol/HDL Ratio Vitamin B12 383 Folate 15.40 Urine Color Urine Appearance (Clear) Urine pH (4.5-7.5) Ur Specific [place] (1.000-1.030) Urine Protein (Negative) Urine Glucose (UA) (Negative) Urine Ketones (Negative) Urine Blood (Negative) Urine Nitrite (Negative) Urine Bilirubin (Negative) Urine Urobilinogen (Negative) Ur Leukocyte Esterase (Negative) Urine WBC (Auto) (0-5) /hpf Urine RBC (Auto) (0-4) /hpf U Hyaline Cast (Auto) (0-5) /lpf U Epithel Cells (Auto) (0-5) /lpf Urine Bacteria (Auto) (Negative) Stl C. diff Tox B Gene (Neg) Stool Comments Pending 05/12/21 05/12/21 05/12/21 Range/Units 15:22 12:04 12:04 WBC (4.8-10.8) K/uL RBC (4.2-5.4) M/uL Hgb (12.0-16.0) g/dL Hct (37-47) % MCV (80-100) fL MCH (25-34) pg MCHC (32-36) g/dL RDW Std Deviation (36.4-46.3) fL RDW Coeff of Linda (11.5-14.5) % Plt Count (130-400) K/uL MPV (7.4-10.4) fL Immature Gran % (Auto) % Neut % (Auto) % Lymph % (Auto) % Charlton % (Auto) % Eos % (Auto) % Baso % (Auto) % Neut # (Auto) (1.4-6.5) K/uL Lymph # (Auto) (1.2-3.4) K/uL Charlton # (Auto) (0.11-0.59) K/uL Eos # (Auto) (0-0.5) K/uL Baso # (Auto) (0-0.2) K/uL Immature Gran # (Auto) (0.00-0.02) K/uL Platelet Estimate (Normal) Peripher Smr Path Cons Sodium (136-145) mmol/L Potassium (3.5-5.1) mmol/L Chloride (98-107) mmol/L Carbon Dioxide (21-32) mmol/L Anion Gap (3-11) BUN (7-18) mg/dl Creatinine (0.6-1.2) mg/dl Est Cr Clr Drug Dosing ml/min Est GFR ( Amer) ml/min Est GFR (Non-Af Amer) ml/min BUN/Creatinine Ratio (10-20) Glucose (70-99) mg/dl Calcium (8.5-10.1) mg/dl Magnesium (1.8-2.4) mg/dl Iron (35-150) mcg/dl TIBC (250-450) mcg/dl Transferrin (200-360) mg/dl Transferrin % Sat (15-50) % Total Bilirubin (0.2-1) mg/dl AST (15-37) U/L ALT (12-78) U/L Alkaline Phosphatase (45-117) U/L Troponin I < 0.015 (0-0.045) ng/ml Total Protein (6.4-8.2) gm/dl Albumin (3.4-5.0) gm/dl Globulin (2.5-4.0) gm/dl Albumin/Globulin Ratio (0.9-2) Triglycerides (0-150) mg/dl Cholesterol (0-200) mg/dl LDL Cholesterol, Calc mg/dl VLDL Cholesterol, Calc mg/dl HDL Cholesterol mg/dl Cholesterol/HDL Ratio Vitamin B12 Cancelled Folate Cancelled Urine Color Urine Appearance (Clear) Urine pH (4.5-7.5) Ur Specific [place] (1.000-1.030) Urine Protein (Negative) Urine Glucose (UA) (Negative) Urine Ketones (Negative) Urine Blood (Negative) Urine Nitrite (Negative) Urine Bilirubin (Negative) Urine Urobilinogen (Negative) Ur Leukocyte Esterase (Negative) Urine WBC (Auto) (0-5) /hpf Urine RBC (Auto) (0-4) /hpf U Hyaline Cast (Auto) (0-5) /lpf U Epithel Cells (Auto) (0-5) /lpf Urine Bacteria (Auto) (Negative) Stl C. diff Tox B Gene Negative Cdiff Gene (Neg) Stool Comments 05/12/21 05/12/21 Range/Units 12:04 06:15 WBC (4.8-10.8) K/uL RBC (4.2-5.4) M/uL Hgb (12.0-16.0) g/dL Hct (37-47) % MCV (80-100) fL MCH (25-34) pg MCHC (32-36) g/dL RDW Std Deviation (36.4-46.3) fL RDW Coeff of Linda (11.5-14.5) % Plt Count (130-400) K/uL MPV (7.4-10.4) fL Immature Gran % (Auto) % Neut % (Auto) % Lymph % (Auto) % Charl[place] % (Auto) % Eos % (Auto) % Baso % (Auto) % Neut # (Auto) (1.4-6.5) K/uL Lymph # (Auto) (1.2-3.4) K/uL [place] # (Auto) (0.11-0.59) K/uL Eos # (Auto) (0-0.5) K/uL Baso # (Auto) (0-0.2) K/uL Immature Gran # (Auto) (0.00-0.02) K/uL Platelet Estimate (Normal) Peripher Smr Path Cons Sodium (136-145) mmol/L Potassium (3.5-5.1) mmol/L Chloride (98-107) mmol/L Carbon Dioxide (21-32) mmol/L Anion Gap (3-11) BUN (7-18) mg/dl Creatinine (0.6-1.2) mg/dl Est Cr Clr Drug Dosing ml/min Est GFR ( Amer) ml/min Est GFR (Non-Af Amer) ml/min BUN/Creatinine Ratio (10-20) Glucose (70-99) mg/dl Calcium (8.5-10.1) mg/dl Magnesium (1.8-2.4) mg/dl Iron 48 (35-150) mcg/dl TIBC 236 L (250-450) mcg/dl Transferrin 163 L (200-360) mg/dl Transferrin % Sat 21 (15-50) % Total Bilirubin (0.2-1) mg/dl AST (15-37) U/L ALT (12-78) U/L Alkaline Phosphatase (45-117) U/L Troponin I (0-0.045) ng/ml Total Protein (6.4-8.2) gm/dl Albumin (3.4-5.0) gm/dl Globulin (2.5-4.0) gm/dl Albumin/Globulin Ratio (0.9-2) Triglycerides (0-150) mg/dl Cholesterol (0-200) mg/dl LDL Cholesterol, Calc mg/dl VLDL Cholesterol, Calc mg/dl HDL Cholesterol mg/dl Cholesterol/HDL Ratio Vitamin B12 Folate Urine Color Urine Appearance (Clear) Urine pH (4.5-7.5) Ur Specific [place] (1.000-1.030) Urine Protein (Negative) Urine Glucose (UA) (Negative) Urine Ketones (Negative) Urine Blood (Negative) Urine Nitrite (Negative) Urine Bilirubin (Negative) Urine Urobilinogen (Negative) Ur Leukocyte Esterase (Negative) Urine WBC (Auto) (0-5) /hpf Urine RBC (Auto) (0-4) /hpf U Hyaline Cast (Auto) (0-5) /lpf U Epithel Cells (Auto) (0-5) /lpf Urine Bacteria (Auto) (Negative) Stl C. diff Tox B Gene (Neg) Stool Comments PG Care Time/CCT Total # of Minutes Spent Total Time Spent with Patient: Total time spent is greater than 50% in coordination of care (as documented) at patient's floor/unit and/or counseling patient: Coding Level of Care Code 40221 Subseq Hosp Care Lvl 3 Diagnoses Bradycardia R00.1 Chest pain R07.9 Chest pain type: unspecified Diarrhea R19.7 Elevated serum creatinine R79.89 Pancytopenia D61.818 GERD (gastroesophageal reflux disease) K21.9 Pancreatic insufficiency K86.89 History of depression Z86.59 History of anxiety Z86.59 Hypothyroidism E03.9 Hypokalemia E87.6 Arthritis of knee M17.10 MCI (mild cognitive impairment) G31.84 Ambulatory dysfunction R26.2 DVT prophylaxis Z29.9 (1) Chest pain Chest pain type: unspecified Qualified Code(s): R07.9 - Chest pain, unspecified
[2021-05-13] MEDS ORDERED: VANCOMYCIN HCL 1000MG/20ML VIAL ONE (14:47)
[2021-05-13] MEDS ORDERED: LIDOCAINE 1% LOCAL 20 ML VIAL ONE (14:47)
[2021-05-13] MEDS ORDERED: BUPIVACAINE 0.25% 30 ML VIAL ONE (14:47)
[2021-05-13] MEDS ORDERED: WATER, STERILE FOR INJ 10 ML VIAL ONE (14:48)
[2021-05-13] MEDS ORDERED: fentaNYL citrate 100 MCG/2 ML VIAL ONE (15:01)
[2021-05-13] MEDS ORDERED: MIDAZOLAM HCL 5 MG/ML 1 ML VIAL ONE (15:01)
--- NOTE | 2021-05-13 15:19 | Pre Anesthesia Assessment ---
Date of Service May 13, 2021 Pre Sedation Assessment Vital Signs Temp Pulse Pulse Resp BP Pulse Ox Pulse Ox 05/13/21 14:42 32 L 20 139/77 100 05/13/21 14:15 31 L 05/13/21 12:21 97 05/13/21 11:40 36.6 C 35 L 20 122/55 L 96 05/13/21 07:44 36.4 C L 32 L 22 144/51 H 96 05/13/21 07:24 32 L 05/13/21 02:56 36.6 C 38 L 17 129/75 96 05/12/21 23:55 34 L 05/12/21 23:02 36.6 C 34 L 16 120/55 L 96 05/12/21 19:26 36.5 C 35 L 17 113/50 L 95 05/12/21 16:13 36.6 C 69 20 126/67 98 Cardiovascular + bradycardic Respiratory + respiratory effort normal Pre-Sedation Airway Assessment Smoking Status: Never smoker Hx Sleep Apnea: No Hx Difficult Intubation: No Short, Thick Neck: No Thyromental Distance: > or= 3.5 Finger Breadths Oral Cavity: + Capped Teeth Mallampati Class: III ASA: ASA3 NPO Status Date of Last Intake of Fluids: 05/12/21 Time of Last Intake of Fluids: 17:00 Date of Last Intake of Solid Food: 05/12/21 Time of Last Intake of Solid Foods: 17:00 Procedure Planning Contraindications for Sedation: none Current Medications Reviewed: Yes Notes The planned sedation has been discussed with the patient. Informed Consent was obtained. I have identified the patient, determined the appropriateness of sedation and have assessed the patient immediately prior to the procedure. All medicine(s) and interventions are by my order.
--- NOTE | 2021-05-13 17:11 | Electrophysiology Report ---
Date of Service May 13, 2021 Electrophysiology Procedure Electrophysiology Procedure Report Procedure performed: Implantation of dual-chamber permanent pacemaker Staff guide alpine: José Miguel Fermin MD Indication: The patient is an 81-year-old woman who presented with symptomatic b radycardia due to sinus node dysfunction. She is likely a good candidate for permanent pacemaker due to symptomatic nonreversible sinus node dysfunction. Dual-chamber device was selected and she is currently in sinus rhythm and wish to maintain AV synchrony. Procedure in detail: The patient was informed of the risks benefits and alternatives to the intended procedure and she wished to proceed. She was taken to the electrophysiology suite in a fasting state. A preoperative antibiotic had been administered. The patient was monitored electrocardiographically throughout today's procedure and conscious sedation was administered per protocol. The left upper pectoral area is prepped and draped in usual sterile fashion. This area was anesthetized using subcutaneous administration of a xylocaine solution. An incision was made at this site and carried down to the prepectoralis fascia using sharp dissection. Electrocautery was also employed for dissection as well as for hemostasis. A d evice pocket was fashioned tissues above the pectoralis muscle. Subsequent to this maneuver the left axillary vein was accessed using modified Seldinger technique. Sheaths were placed over guidewires at this site and used to facilitate passage of the pacing leads to the respective chambers under fluoroscopic guidance. This included right atrial and right ventricular leads. Adequate sensing and threshold parameters were obtained prior to Active fixation of the leads to the endocardial surface. The proximal portion leads were then sutured the prepectoral fascia using nonabsorbable suture. The device pocket was irrigated with antibiotic solution. The leads were then attached to the device. The device and leads were then placed in the pocket and pocket was closed in 3 layers of absorbable suture. Steri-Strips and sterile dressing were applied. The device was tested noninvasively prior to conclusion the procedure. The patient tolerated procedure well there no immediate complications. Equipment used: New pulse generator: [employer]. Model number: [id number] serial number [id number] Right atrial lead: Metal Drill Operator [employer]. Model number: 5076 serial number [id number] Right ventricular lead: [employer]. Model number: 5076 serial number [id number] Measured data: Right atrial lead: P waves measure 3.4 mV. Pacing threshold 1.5 V at 0.4 ms with a pacing impedance of 418 ohms Right ventricular lead: R waves measured 8.5 mV. Pacing threshold was 0.5 V at 0.4 ms with a pacing impedance of 460 ohms Impression: Successful implantation of dual-chamber permanent pacemaker [facility] Electrophysiology codes Pacing Procedure 1: Pacin Insert/Replace Pacer A & V PG Moderate Sedation Codes Moderate Sedation Codes Procedure 1: Sedation/Anesthesia: 58301 Mod Sedation by the same physician;Init15 Min Child Age 5 & Up Procedure 2: Sedation/Anesthesia: 68202 Mod Sedation by the same physician; Cristian Juan Carlos Minutes
--- NOTE | 2021-05-13 17:12 | Post Anesthesia Assessment ---
Date of Service May 13, 2021 Post Sedation Assessment Vital Signs Temp Pulse Pulse Resp BP Pulse Ox Pulse Ox 05/13/21 16:30 37 C 63 14 146/77 H 99 05/13/21 16:19 60 16 142/83 H 98 05/13/21 16:04 60 16 138/83 100 05/13/21 14:42 32 L 20 139/77 100 05/13/21 14:15 31 L 05/13/21 12:21 97 05/13/21 11:40 36.6 C 35 L 20 122/55 L 96 05/13/21 07:44 36.4 C L 32 L 22 144/51 H 96 05/13/21 07:24 32 L 05/13/21 02:56 36.6 C 38 L 17 129/75 96 05/12/21 23:55 34 L 05/12/21 23:02 36.6 C 34 L 16 120/55 L 96 05/12/21 19:26 36.5 C 35 L 17 113/50 L 95 Recovery Score Activity: Moves 4 extremities Respiration: Deep Breath/Cough Circulation: +/-20% PreAnes Value Consciousness: Fully Awake Oxygen Saturation: > 92% On Room Air Discharge Sedation Level of Care: Fast Track Phase II Post Sedation Plan On clinical assessment, the patient appears to have tolerated the sedation without complications. Patient is recovering as anticipated. Patient will continue to be monitored by nursing and may be discharged when sedation discharge criteria are met per below protocol. Upon Completions of procedure up to 15 minutes continue every 5 minute vital signs and the P.A.R. score; then discharge to a Phase I or Fast Track to Phase II per the following guidelines: * Discharge Patient to appropriate Phase II area if PAR is 8 or greater or return to pre- procedure baseline. The post - procedure orders will be as directed. * If PAR score is less than 8 or not return to pre-procedure baseline then patient will follow Phase I monitoring till PAR is reached for Phase II. The Phase I may be done in procedure room or may call to secure a Phase I area. * If naloxone or flumazenil are used for reversal, hold in Phase I for continued monitoring from when last reversal dose was given for a minimum of 60 minutes or longer pending the nurse and/or physician discretion of patient condition before discharge to Phase II. Please call the Sedation Physician to re-evaluate and complete post-note for discharge to Phase II area. Do NOT discharge from procedure sedation or Phase 1 until post- sedation evaluation note is complete by procedure /sedation MD Sedation Discharge Instructions to be given to the patient at discharge to home.
[2021-05-13] MEDS: ACETAMINOPHEN 325 MG TAB PO PRN (17:39)
[2021-05-13] MEDS: oxyCODONE HCL IR 5 MG TAB (IMMEDIATE RELEASE) PO PRN (19:22)
[2021-05-13] MEDS: ENOXAPARIN INJ 40 MG/0.4 ML SYR SQ SCH (20:24)
[2021-05-14] MEDS: DOXYCYCLINE HYCLATE 100 MG in DEXTROSE 5% 100 ML IV SCH ×2 (01:02→13:51)
[2021-05-14] MEDS: oxyCODONE HCL IR 5 MG TAB (IMMEDIATE RELEASE) PO PRN (01:15)
[2021-05-14] MEDS: LEVOTHYROXINE SODIUM 88 MCG TABLET PO SCH (05:46)
[2021-05-14] MEDS: PANCREAZE (LIPASE 10,500U) CAP PO SCH ×2 (07:47→12:45)
[2021-05-14] MEDS: PANTOprazole 40 MG TAB PO SCH (07:48)
--- NOTE | 2021-05-14 08:18 | XRay Report ---
XR chest 2V PA/lateral HISTORY: Left-sided pacemaker placement. EXACT TIME ORDERED Evaluate for pneumothorax and l COMPARISON: Chest 05/12/2021. FINDINGS: Interval placement left-sided dual-chamber pacemaker. The leads appear intact. No pneumotho rax. The lungs are clear. No pleural effusions. The cardiac silhouette remains mildly enlarged. There is a mildly tortuous thoracic aorta, unchanged. Mild anterior wedging within the lower thoracic spin e vertebral body. This is likely chronic. IMPRESSION: Interval placement of a left-sided dual-chamber pacemaker. No pneumothorax. ACT 112: Negative or not required by law. Electronically signed by: Lavon Wallace M.D. 05/14/2021 8:16 AM
[2021-05-14 09:29] LABS: Hematocrit (blood only) 38.1 % (37-47); Hemoglobin 11.9 g/dL (12.0-16.0); Mean Corpuscular Hemoglobin 31.2 pg (25-34); Mean Corpuscular Hgb Conc 31.2 g/dL (32-36); RDW Coefficient of Variation 16.4 % (11.5-14.5); Red Blood Count 3.81 M/uL (4.2-5.4)
[2021-05-14 09:31] LABS: Basophils # (auto) 0.02 K/uL (0-0.2); Basophils % (auto) 0.4 %; Eosinophils % (auto) 2.1 %; Immature Granulocytes # (auto) 0.01 K/uL (0.00-0.02); Immature Granulocytes % (auto) 0.2 %; Lymphocytes # (auto) 0.98 K/uL (1.2-3.4); Lymphocytes % (auto) 20.9 %; Mean Platelet Volume 11.8 fL (7.4-10.4); Monocytes # (auto) 0.39 K/uL (0.11-0.59); Monocytes % (auto) 8.3 %; Neutrophils % (auto) 68.1 %; Platelet Count 85 K/uL (130-400)
[2021-05-14 09:50] LABS: Calcium 7.6 mg/dl (8.5-10.1); Creatinine Clr Calc Pharmacy 33.1 ml/min; Est GFR (African American) 41.5 ml/min; Est GFR (Non-African American) 35.8 ml/min; Magnesium 1.8 mg/dl (1.8-2.4); Potassium 4.9 mmol/L (3.5-5.1)
[2021-05-14 09:58] LABS: Echinocytes 1+
--- NOTE | 2021-05-14 11:15 | Cardiology Progress Note ---
Date of Service May 14, 2021 Assessment & Plan (1) Chest pain: No recurrence. (2) Bradycardia: She underwent successful implantation of dual-chamber permanent pacemaker yesterday without evident complication. The threshold on the right atrial lead is elevated. The sensing on the right atrial lead is compromised. This would suggest a micro dislodgement. However, was able to program the lead to function appropriately. I do not think there is a need for urgent lead revision. Hopefully as the device heals will see improvement in the lead function. Normal right ventricular lead function. I think she would be safe for discharge today. She should refrain from lifting left arm above the shoulder or behind neck for 6 weeks. She should keep the wound dry in the Steri-Strip intact until follow-up in our clinic next week. I will arrange for her to have a nurse visit for a wound check next week. (3) Mitral regurgitation: Mild to moderate on echocardiography. This can be monitored over time. Admission and Anticipated Discharge Date Admission Date: May 13, 2021 Subjective This morning patient claims to be feeling well. Minimal discomfort at the device implant site. No significant dizziness or lightheadedness. Slightly more energy overall. Review of Systems Review of Systems: Per HPI Physical Exam Physical Exam: Patient alert and oriented. Answer questions appropriately Device implant site with ecchymosis but no drainage or hematoma. No erythema. Results & Data ([facility]) Vital Signs (Past 12 Hours) Vital Signs Temp Pulse Resp BP Pulse Ox 05/14/21 07:38 36.5 C 57 L 18 158/84 H 97 05/14/21 03:34 36.5 C 61 18 111/75 97 Laboratory Results Abnormal Lab Results 05/14/21 05/14/21 09:20 09:20 WBC 4.70 L RBC 3.81 L Hgb 11.9 L Hct 38.1 MCV 100.0 MCH 31.2 MCHC 31.2 L RDW Std Deviation 60.0 H RDW Coeff of Linda 16.4 H Plt Count 85 L MPV 11.8 H Immature Gran % (Auto) 0.2 Neut % (Auto) 68.1 Lymph % (Auto) 20.9 [place] % (Auto) 8.3 Eos % (Auto) 2.1 Baso % (Auto) 0.4 Neut # (Auto) 3.20 Lymph # (Auto) 0.98 L [place] # (Auto) 0.39 Eos # (Auto) 0.10 Baso # (Auto) 0.02 Immature Gran # (Auto) 0.01 Echinocytes 1+ Sodium 142 Potassium 4.9 Chloride 116 H Carbon Dioxide 21 Anion Gap 5.0 BUN 26 H Creatinine 1.38 H Est Cr Clr Drug Dosing 33.1 Est GFR ( Amer) 41.5 Est GFR (Non-Af Amer) 35.8 BUN/Creatinine Ratio 19.0 Glucose 124 H Calcium 7.6 L Magnesium 1.8 Diagnostic Findings Chest x-ray demonstrated stable lead position without evidence of pneumothorax Device interrogation revealed poor function of the right atrial lead with normal function of the right ventricular lead. (1) Chest pain Chest pain type: unspecified Qualified Code(s): R07.9 - Chest pain, unspecified
[2021-05-14] MEDS: ACETAMINOPHEN 325 MG TAB PO PRN (12:44)
[2021-05-14 13:32] LABS: Ehrlichia chaff DNA Bld Not Detected (Not Detected)
--- NOTE | 2021-05-14 15:11 | Discharge Summary ---
Date of Service May 14, 2021 Admission HPI Per Admitting Provider This patient is an 81-year-old female with a history of pancreatic insufficiency, gastric bypass surgery, GERD, hypokalemia, allergic rhinitis, osteoarthritis/wheelchair-bound, hypothyroidism, anxiety/depression, and MCI, who presents to the ER via ambulance with palpitations and chest pain along with lightheadedness. She reports about 2 weeks ago she was seen by her primary care physician and was noted to have some sort of abnormality on EKG. She had a Holter monitor ordered for her but she has not been able to place it yet due to confusion over the instructions. She is also been feeling short of breath over the last 2 weeks intermittently. She was working in the garden yesterday and started having chest pressure that was left-sided, 5-6/10 in severity, that would come on with exertion and go away with rest. It was not associated with nausea/vomiting, no diaphoresis. She was also having intermittent lightheadedness especially with bending over. This lasted intermittently through the night and she came here this morning. Since being in the ER, she has not had any recurrence but has been laying at rest in the bed. In the ER, she had a couple of episodes where her heart rate dipped down into th e 20s and 30s however she was asymptomatic with these. Her chest pain had resolved when she got to the ER. She denies any nausea or vomiting, no passing out, no abdominal pain. Denies any fever/chills/sweats, no headaches or acute joint pains or rashes. Denies any known tick bites. No urinary symptoms. She has been having a significant increase in diarrhea over the last 2 weeks-going 3-4 or more times per day that is nonbloody, no melena. She has chronic diarrhea but not usually this bad. She typically is in a wheelchair but has been outside trying to clean her patio from the wheelchair in the last day. Other than the occasional bradycardia, she was afebrile, mildly hypertensive, and pulse ox was 98-99% on room air. EKG in the ER shows sinus bradycardia, rate 59, no ischemic changes, no heart blocks. Review of telemetry in the ER does show occasional bradycardia down to the 20s-30s with possible junctional escape beats. On laboratory evaluation, she was found to be pancytopenic with MCV elevated at 100 and platelets low at 86K, elevated alkaline phosphatase, troponin negative x1, TSH elevated at 7.82, and creatinine elevated at 1.61, BUN elevated at 25. Peripheral smear for Anaplasma was done which was negative. Covid-19 was negative. Chest x-ray showed cardiomegaly, chronic interstitial thickening similar to previous with bibasilar scarring/atelectasis, otherwise normal. She reports she had a liver ultrasound done about a month ago and was told there was some sort of spot on her liver. In the ER, she received 500 mL of normal saline. Principal Diagnosis Symptomatic bradycardia, s/p Permanent pacemaker placement, Pancytopenia Discharge Exam Constitutional WD/WN, vitals as above Eyes + anicteric sclerae Neck trachea midline, no thyromegaly Respiratory normal respiratory effort, lungs clear to auscultation Cardiovascular RRR, no murmur, no edema Chest (Breasts) Chest: + pacemaker Gastrointestinal (Abdomen) normal bowel sounds, soft, nontender, no hepatosplenomegaly Inspection/Auscultation: + abdomen abnormal to inspection (Incisional and scars from wound) Musculoskeletal Extremities: strength 5/5 throughout; + extremities abnormal to inspection (Plantar flexed foot contractures), no cyanosis and no clubbing Skin no rashes, warm and dry Neurologic moves all extremities and awake; no focal motor deficits Psychiatric A+Ox3, euthymic affect Lymphatic no lymphedema Discharge Data Allergies Allergy/AdvReac Type Severity Reaction Status Date / Time No Known Allergies Allergy Unverified 05/12/21 07:27 Consultations 05/12/21 08:03 ED Decision to Admit Stat 05/12/21 10:46 Consult Cardiology Routine Procedures Performed Operation Date: 05/13/21 13:00 Actual Procedures p Pacer with A/V Leads (Dual) - Baljit Fermin MD Ordered Studies 05/12/21 10:38 CT abd pelvis wo con Urgent 05/13/21 06:40 CL Cath Imgs for PACS use only Routine Chest X-Ray 05/12/21 06:18 SINGLE VIEW CHEST CLINICAL HISTORY: Dysrhythmia. FINDINGS: An AP, portable, upright chest radiograph is compared to study dated 01/22/2008. The heart is enlarged noting atherosclerotic calcification of the thoracic aorta. The pulmonary vasculature is noncongested. Chronic interstitial thickening is similar to previous. There is bibasilar scarring/atelectasis. No airspace consolidation or large pleural effusion is identified. No pneumothorax is seen. The skeletal structures are osteopenic. The bony thorax is grossly intact. IMPRESSION: Cardiomegaly with no acute cardiopulmonary abnormality. ACT 112: Negative or not required by law. Electronically signed by: Carroll Chapin M.D. 05/12/2021 7:47 AM Abdomen/Pelvis CT 05/12/21 10:38 CT SCAN OF THE ABDOMEN AND PELVIS WITHOUT IV CONTRAST CLINICAL HISTORY: Diarrhea. Thrombocytopenia. COMPARISON STUDY: No priors. TECHNIQUE: CT scan of the abdomen and pelvis is performed from the lung bases to the proximal femora. Images are reviewed in the axial, sagittal, and coronal planes. IV contrast was not administered for this examination. A dose lowering technique was utilized adhering to the principles of ALARA. CT DOSE: 957.73 mGy.cm FINDINGS: Lung bases: The heart is mildly enlarged and without pericardial effusion. The coronary arteries are densely calcified. The lung bases are clear noting bibasilar scarring/atelectasis. Liver: The unenhanced liver is normal in size, contour, and attenuation. There is mild intrahepatic biliary ductal dilatation. Gallbladder: Not identified and presumed surgically absent. Spleen: Normal in size and attenuation, measuring 11.8 cm in length. Pancreas: The unenhanced pancreas is atrophic and grossly unremarkable. Adrenal glands: There is a 1.4 cm left adrenal adenoma. The right adrenal gland is normal as visualized. Kidneys: The unenhanced kidneys are atrophic and without hydronephrosis. There is a punctate nonobstructing calculus in the left lower pole. No right renal calculi are identified. There is no evidence of contour deforming renal mass lesion. Abdominal vasculature: The abdominal aorta is normal in course and caliber. An infrarenal IVC filter is in place. Stomach and bowel: There is postoperative change consistent with partial gastrectomy. There is mild to moderate colonic diverticulosis without CT evidence of acute diverticulitis. No bowel obstruction is identified. The colon is relatively decompressed. No significant colonic wall thickening or pericolonic inflammation is identified. The appendix is not identified and reported surgically absent. Peritoneum: There is no intraperitoneal free air or abdominal ascites. Lymphadenopathy: None. Pelvic viscera: The bladder wall is thickened and there is pericystic inflammat ion. The uterus and adnexa are normal as visualized noting bilateral adnexal surgical clips. Skeletal structures: The skeletal structures are osteopenic. There is advanced lumbosacral spondylosis as well as scoliosis. There are mild superior endplate compression deformities of T11 and L1. No lytic or blastic lesions are seen. Arthritic changes seen in the hips, left greater than right. IMPRESSION: 1. Findings suggest cystitis. Correlate with clinical findings and urinalysis. 2. Colonic diverticulosis without CT evidence of acute diverticulitis. 3. Left-sided nephrolithiasis. 4. Mild cardiomegaly. 5. Additional findings as above. ACT 112: Negative or not required by law. Electronically signed by: Carroll Chapin M.D. 05/12/2021 3:59 PM Chest X-Ray 05/14/21 07:00 XR chest 2V PA/lateral HISTORY: Left-sided pacemaker placement. EXACT TIME ORDERED Evaluate for pneumothorax and l COMPARISON: Chest 05/12/2021. FINDINGS: Interval placement left-sided dual-chamber pacemaker. The leads appear intact. No pneumothorax. The lungs are clear. No pleural effusions. The cardiac silhouette remains mildly enlarged. There is a mildly tortuous thoracic aorta, unchanged. Mild anterior wedging within the lower thoracic spine vertebral body. This is likely chronic. IMPRESSION: Interval placement of a left-sided dual-chamber pacemaker. No pneumothorax. ACT 112: Negative or not required by law. Electronically signed by: Lavon Wallace M.D. 05/14/2021 8:16 AM Hospital Course (1) Bradycardia: Noted to have heart rate dipping into the 20s and 30s at times but was asymptomatic in the ER with some possible junctional escape beats Continued with junctional rhythm, multiple sinus arrests in 4 second range, HR persistently in the 20-30s for first 36 hours of admission BPs stable Now s/p PPM on 05/[address] Fermin This is the cause of her recent presyncope episodes and shortness of breath in the last day or so She is not on any AV shira blocking agents TSH is elevated but free T4 is normal, however given bradycardia will increase levothyroxine as below -doing well s/p pacer and stable for dc to home with Cardiology follow up (2) Chest pain: Her pain is somewhat typical in nature, however it has been intermittent through the night and her serial troponins here are negative making acute coronary syndrome or unstable angina ruled out She has no other known significant risk factors for heart disease other than age Perhaps she is having intermittent bradycardia or heart block causing her symptoms There is no evidence of heart failure. She has been having some presyncope No murmur on examination Electrolytes are within normal limits ECG without ischemic changes ECHO with mild-mod MR, no WMA, preserved EF (3) Diarrhea: Has been having on average 4 loose bowel movements per day for last 2 weeks which is more than her usual given her chronic diarrhea No fevers or chills No abdominal pains except some mild tenderness palpation on the right abdomen now much improved with stopping Aricept C. diff negative Stool cx pending at time of dc O&P pending -Hydrated with IV fluids given mild renal insufficiency Continue home Creon Check CT abdomen/pelvis-negative (4) Elevated serum creatinine: Creatinine 1.61 with elevated BUN on admission, now resolved with IVFs joinery setter out down to 1.3 This could be from acute kidney injury due to dehydration from recent diarrhea received IVFs (5) Pancytopenia: With pancytopenia here, MCV elevated, platelets at 86 on admission and fairly stable today at 90 Could be secondary to viral illness or myelosuppression, but seems to be more chronic in nature--> could be MDS Anaplasma smear negative, but does not rule out anaplasmosis-checking Anaplasma DNA, Ehrlichia titer TSH is mildly elevated but not likely the cause. LFTs are normal except for elevated alkaline phosphatase-could have some hepatic steatosis or cirrhosis Could be due to B12 deficiency given gastric bypass history but B12 level here is normal FOlate normal, Fe studies not terrible No history of melena or hematochezia, no hematuria Check peripheral smear-no dysplasia but could be MDS CT abdomen/pelvis no splenomegaly or liver issues -Follow CBC as outpt -refer to Heme as outpt, may be MDS, may need bone marrow bx f/u on Anaplasmosis PCR after dsicharge (6) GERD (gastroesophageal reflux disease): Continue home PPI Has history of gastric bypass surgery and is at risk for anastomotic ulcers (7) Pancreatic insufficiency: Patient unaware of this diagnosis but is on Creon Continue Creon with meals (8) History of depression: Listed in chart but is not on medications for this (9) History of anxiety: Listed in chart but not on medications (10) Hypothyroidism: TSH elevated, free T4 normal Increase levothyroxine 88 mcg/day given bradycardia check TFTs as outpt in 4-6 weeks (11) Hypokalemia: Potassium levels are normal here but is on potassium chloride 20 mEq p.o. 3 times daily at home then developed mild hyperkalemia here HOLD K+ supplement upon discharge check BMP as outpt with PCP (12) Arthritis of knee: Severe arthritis of bilateral knees, is with ambulatory dysfunction and in a wheelchair for many years (13) MCI (mild cognitive impairment): Very mild, stable dc donepezil (14) Ambulatory dysfunction: As above, wheelchair-bound (15) Cardiac pacemaker in situ: as above (16) Mitral regurgitation: as above (17) DVT prophylaxis: Lovenox SQ Dispo- dc to home FULL CODE Total Time Total Time Spent Total Time Spent (In Minutes): 35 min Total Time Includes: Examination of the Patient, Discharge Planning, Medication Reconciliation and Communication With Other Providers (Cardiology) Discharge Plan Discharge Items Patient Disposition: Home - Self-Care Reason For Visit: CHEST PAIN,BRADYCARDIA Discharge Diagnosis: Bradycardia, Pancytopenia Condition on Discharge: Good Activity: As commented below Lifting Comment: No use of left arm for lifting above level of shoulder for 6 weeks Exercise Comment: No use of left arm above the level of the shoulder x 6 weeks Non-emergency contact: Primary Care Provider and Pipeline Gang Supervisor Call non-emergency contact if: you have any medication questions and your symptoms worsen Follow-up/Referrals: Jose Dorsey MD [Primary Care Provider] - 05/22/21 1:00 pm (Follow up within 1-2 weeks) Diet: Regular Addtl Attending Provider Instructions: You were admitted for a low heart rate and had a pacemaker placed. Cardiology will arrange for a visiting nurse to come to your house in 1 week for a wound check and then follow up with Cardiology in their clinic in 1 week. You were also found to have low platelets, white blood cells, and red blood cells. Please schedule an appointment with the Lapping Machine Operator to further evaluate this condition. You should STOP taking the donepezil as this may have been causing your diarrhea. Your thyroid function was too low and your levothyroxine dose was increased to 88 mcg once daily. Please have your PCP check your thyroid function again in 4-6 weeks. Your potassium levels were too high and your potassium pills were also stopped. Pending Studies at Discharge: Yes Stand-Alone Forms: My [facility] Medications and DC Order Prescriptions: New levothyroxine [Synthroid] 88 mcg Tablet 88 mcg PO DAILYBB Qty: 30 RF: 0 Continued furosemide 40 mg tablet 40 mg PO DAILY PRN (Reason: bloated) RF: 0 loperamide 2 mg Tablet 2 mg PO Q4H PRN (Reason: Diarrhea) RF: 0 acetaminophen [Tylenol Extra Strength] 500 mg Tablet 500 mg PO Q6H PRN (Reason: Pain) RF: 0 loratadine-pseudoephedrine [Claritin-D 24 Hour] 10-240 mg Tablet Extended Release 24 Hr 1 tab PO DAILY PRN (Reason: Allergy Symptoms) RF: 0 omeprazole 20 mg capsule,delayed release(DR/EC) 20 mg PO QAM RF: 0 Creon 6,000-19,000 -30,000 unit capsule,delayed release(DR/EC) 6,000 cap PO TID RF: 0 Discontinued potassium chloride 10 mEq capsule, extended release 20 meq PO TID RF: 0 donepezil 5 mg tablet 5 mg PO HS RF: 0 levothyroxine 75 mcg tablet 75 mcg PO QAM RF: 0 Discharge Orders: Discharge Order (Routine); Ordered 05/14/21 Ordered By: Abbey Britton/Other Patient Handouts: Living with a Pacemaker Admission Data Admit Date/Time: 05/13/21 11:53 Attending Provider: Abbey Hwang Admit Provider: Abbey Hwang Primary Care Provider: Jose Dorsey Other Providers: Baljit Fermin ; Abbey Hwang Coding Level of Care Code D/C Day Management >30 mins Diagnoses Bradycardia R00.1 Chest pain R07.9 Chest pain type: unspecified Diarrhea R19.7 Elevated serum creatinine R79.89 Pancytopenia D61.818 GERD (gastroesophageal reflux disease) K21.9 Pancreatic insufficiency K86.89 History of depression Z86.59 History of anxiety Z86.59 Hypothyroidism E03.9 Hypokalemia E87.6 Arthritis of knee M17.10 MCI (mild cognitive impairment) G31.84 Ambulatory dysfunction R26.2 Cardiac pacemaker in situ Z95.0 Mitral regurgitation I34.0 DVT prophylaxis Z29.9
--- NOTE | 2021-05-14 15:16 | Electrocardiogram Report ---
Test Reason : Blood Pressure : / mmHG Vent. Rate : 066 BPM Atrial Rate : 066 BPM P-R Int : 176 ms QRS Dur : 072 ms QT Int : 544 ms P-R-T Axes : 059 059 050 degrees QTc Int : 570 ms Normal sinus rhythm Possible Left atrial enlargement Low voltage QRS Nonspecific T wave abnormality Abnormal ECG When compared with ECG of 12-MAY-2021 06:05, Nonspecific T wave abnormality now evident in Inferior leads Nonspecific T wave abnormality, worse in Anterolateral leads QT has lengthened Confirmed by José Miguel Fermin ([id number]) on 05/14/2021 3:15:37 PM Referred By: REFERRED SELF Confirmed By:Sourav Fermin
[2021-05-14 21:16] LABS: Ehrlichia chaff IgG Ab <1:64 (<1:64); Ehrlichia chaff IgM Ab <1:20 (<1:20)
== END 2021-05-14 15:23 | disposition home or self-care (01) | DRG 243 ==
LOC: ED 05:45 → 2S 05:45